=== PATIENT | female | born 1945 | race Caucasian/White ===

== ENCOUNTER 2016-09-24 08:39 | Emergency (ER) | payer MEDICARE ==
[~2016-09-24] VITALS: Ht 157.5 cm; Wt 91.2 kg
[~2016-09-24 08:39] MED LIST: ALEN70TA5 PO; ASPI81TA2 PO; B CO1TAB30 PO; CHOL200024 PO; ESTR1TAB15 PO; FLUT16SP NS; FLUT1DIS3 IH; GABA-586 PO; LEVO175T5 PO; LEVO500T38 PO; METO25TA9 PO; OMEG1CAP6 PO; PHEN300C4 PO; SIMV40TA3 PO; SODI1PAC NS; SPIR50TA2 PO; TIOT18CA IH; ZOLP5TAB4 PO; [UNRECOGNIZED DRUG - CODE] PO
--- NOTE | 2016-09-24 08:56 | PHYS DOC ---
Past Medical History Past Medical History: Other Past Surgical History: Other Additional Past Surgical Histo: cardiac stent placement, CSF leak Alcohol Use: None Drug Use: None Adult General Chief Complaint Chief Complaint: FOOT INJURY PAIN HPI HPI Patient is a 71 year old female who presents with R foot pain. Patient reports she was sitting in a chair yesterday when she started to slide out and hit her R foot on a metal stand. She presents today with pain in the foot and ankle. She did not take anything for the pain prior to arrival. No other injuries. She is UTD on tetanus booster. Review of Systems Review of Systems Constitutional: Denies fever or chills Eyes: Denies change in visual acuity or eye pain HENT: Denies nasal congestion or sore throat Respiratory: Denies cough or shortness of breath Cardiovascular: Denies chest pain GI: Denies abdominal pain, nausea, vomiting, bloody stools or diarrhea : Denies dysuria or hematuria Musculoskeletal: R foot pain and ankle pain Integument: Denies rash or skin lesions Neurologic: Denies headache, focal weakness or sensory changes Current Medications Current Medications Current Medications Medications (Trade) Dose Ordered Sig/Carmella Start Time Stop Time Status Last Admin Dose Admin Acetaminophen/ Hydrocodone Bitart (Lortab 5/325) 1 tab 1X ONCE 09/24/16 09:15 09/24/16 09:17 DC 09/24/16 09:25 1 TAB Neomycin/ Polymyxin/ Bacitracin (Triple Antibiotic Ointment) 1 pkt 1X ONCE 09/24/16 09:45 09/24/16 09:49 DC 09/24/16 10:00 1 PKT Allergies Allergies Allergies Coded Allergies Type Severity Reaction Last Updated Verified Sulfa (Sulfonamide Antibiotics) Allergy Intermediate Rash 01/27/16 No Physical Exam Physical Exam Constitutional: Well developed, well nourished, no acute distress, non-toxic appearance HENT: Normocephalic, atraumatic Eyes: EOMI, conjunctiva normal, no discharge Neck: No stridor Pulmonary: No respiratory distress Skin: Warm, dry Neurologic: Alert and oriented X 3, no gross deficits noted Musculoskeletal: R ankle swollen compared to L, pain with palpation of both medial and lateral malleoli; TTP of R foot, most pronounced along lateral aspect and 4th and 5th metatarsals; bruising of 4th and 5th toes; small (2mm) superficial abrasion to lateral aspect of 4th toe; 2+ DP pulse, motor function and sensation to light touch fully intact; no TTP of R lower leg or knee Psychologic: Affect normal, judgement normal, mood normal Current Patient Data Vital Signs Vital Signs Date Time Temp Pulse Resp B/P Pulse Ox O2 Delivery O2 Flow Rate FiO2 09/24/16 09:18 97.5 80 16 128/61 94 Room Air 97.5 EKG EKG [] Radiology/Procedures Radiology/Procedures X-ray R foot/ankle: IMPRESSION: 1. Demineralization. 2. Scattered degenerative changes. 3. Small cortical fracture along the dorsal margin of the navicular bone. Course & Med Decision Making Course & Med Decision Making Pertinent Labs and Imaging studies reviewed. (See chart for details) Patient is 71 year old female who presents with R foot and ankle pain from injury sustained yesterday. Will obtain x-rays of foot and ankle to evaluate for fracture. Oral pain medication ordered for relief of pain. Imaging results as above. Discussed results with patient. Will place in post-op shoe. Discussed management with patient, including non-weight bearing until follow up with ortho. Patient discharged home with rx for pain meds, instructions for follow up with orthopedics, return precautions. Dragon Disclaimer Dragon Disclaimer This electronic medical record was generated, in whole or in part, using a voice recognition dictation system. Departure Departure Impression: Primary Impression: Foot fracture Disposition: 01 HOME, SELF-CARE Condition: STABLE Referrals: NIEVES SALMON MD (PCP) CHRISTIAN ABREU MD Patient Instructions: Foot Fracture Additional Instructions: Thank you for allowing us to provide care today in the Emergency Department. Take the provided medication as directed. Use caution when taking the pain medication as it can make you drowsy. Schedule a follow up appointment with your primary care doctor. Return promptly to the Emergency Department if you develop any new or concerning symptoms. Scripts Hydrocodone/Apap 5-325 (Howe 5-325 Tablet)1 Each Tablet1 Tab PO PRN Q6HRS PRN PAIN #25 TAB Prov:SALVATORE BOND MD 09/24/16 SALVATORE BOND MD Sep 24, 2016 08:56
[2016-09-24] MEDS ORDERED: HYDROCODONE/APAP 5/325MG TABLET. PO ONE (09:15)
[2016-09-24 09:18] VITALS: BP 128/61
--- NOTE | 2016-09-24 09:28 | RAD ---
Right ankle, 3 views, 09/24/2016: History: Fall, pain and swelling There is patchy bony demineralization. No ankle fracture is identified. There is moderate diffuse soft tissue swelling about the ankle. Right foot, 3 views, 09/24/2016: There are moderate scattered degenerative changes. There is a small calcific density along the dorsal aspect of the navicular bone compatible with a cortical avulsion fracture, which may be recent. No other fracture or dislocation is identified. There is a moderate sized inferior calcaneal spur. There is moderate diffuse soft tissue swelling about the foot. IMPRESSION: 1. Demineralization. 2. Scattered degenerative changes. 3. Small cortical fracture along the dorsal margin of the navicular bone.
[2016-09-24] MEDS ORDERED: NEOMY/BACITR/POLYMYXIN OINT PACKET. TP ONE (09:45)
[2016-09-24] MEDS ORDERED: HYDR-971 PO (09:49)
== END 2016-09-24 10:43 | disposition other institution (70) ==
LOC: ER 08:39
DX: S92.251A Displaced fracture of navicular [scaphoid] of right foot, initial encounter for closed fracture (principal); Z88.2 Allergy status to sulfonamides; W01.198A Fall on same level from slipping, tripping and stumbling with subsequent striking against other object, initial encounter; Y93.89 Activity, other specified; Y92.89 Other specified places as the place of occurrence of the external cause; Y99.8 Other external cause status
CPT/HCPCS: 73610; 73630; 99284

== ENCOUNTER → 2016-11-05 | Outpatient (CLI) | payer MEDICARE ==
[~2016-11-05] MED LIST changes: +HYDR-971 PO
--- NOTE | 2016-11-05 13:34 | KCIC ---
Two-view chest. Indication:Reason For StudyReason: WORSENING SHORTNESS OF AIR X 2 MONTHS / Spl. Instructions: / History: FINDINGS: Heart size is normal. Pulmonary vasculature is within normal limits. No pleural effusion or consolidating infiltrate. No pneumothorax. The mediastinal contours are within normal limits. IMPRESSION: Negative two-view chest. Electronically signed by: Nils Hugo (Nov 05, 2016 13:32:56)
== END | disposition home or self-care (01) ==
LOC: KCIC 12:56
PROVIDERS: ATTEND Internal Medicine Pulmonary Disease
DX: R06.02 Shortness of breath (principal)
CPT/HCPCS: 71020

== ENCOUNTER → 2016-12-05 | Outpatient (CLI) | payer MEDICARE, OTHER ==
[~2016-12-05] MED LIST changes: -ZOLP5TAB4 PO; +ZOLP5TAB5 PO
--- NOTE | 2016-12-05 13:01 | RAD ---
Indication interstitial lung disease. Axial noncontrast images of the chest were obtained and are compared to a study 01/25/2015. There is coronary calcification or there are coronary artery stents. The thoracic aorta appears unremarkable. There are scattered mediastinal lymph nodes. Definite pathologic mediastinal or hilar adenopathy is not seen. Imaging through the upper abdomen is unremarkable. There are scattered opacities in the lungs compatible with the provided diagnosis of interstitial lung disease. A definite acute finding is not seen. A dominant soft tissue mass is not apparent. IMPRESSION: Interstitial changes compatible with the provided diagnosis of interstitial lung disease. A dominant soft tissue mass in either lung is not seen. PQRS Compliance Statement: One or more of the following individualized dose reduction techniques were utilized for this examination: 1. Automated exposure control 2. Adjustment of the mA and/or kV according to patient size 3. Use of iterative reconstruction technique
== END | disposition home or self-care (01) ==
LOC: CT 08:33
PROVIDERS: ATTEND Internal Medicine Pulmonary Disease
DX: J84.9 Interstitial pulmonary disease, unspecified (principal)
CPT/HCPCS: 71250

== ENCOUNTER → 2016-12-07 | Outpatient (CLI) | payer MEDICARE ==
--- NOTE | 2016-12-07 14:20 | RESP ---
DATE OF SERVICE: 12/07/2016 The patient underwent full pulmonary function testing dated 12/07/2016. FEV1 to FVC ratio was 73%, FEV1 was 48% of predicted at 1.01 liters, FVC was 49% of predicted at 1.37 liters. There was a significant bronchodilator response. Residual volume was markedly elevated. Diffusion capacity was diminished. IMPRESSION: 1. Moderate to severe airflow limitation. 2. Significant bronchodilator response. 3. Decreased diffusion capacity compatible with emphysema. BEBO PINEDO MD DR: ISELA/kareem JOB#: [id number] / [id number] NIEVES Whitney MD
== END | disposition home or self-care (01) ==
LOC: PF 08:22
PROVIDERS: ATTEND Internal Medicine Pulmonary Disease
DX: R06.02 Shortness of breath (principal)
CPT/HCPCS: 94060; 94729

== ENCOUNTER → 2017-03-22 | Outpatient (CLI) | payer MEDICARE ==
[~2017-03-22] MED LIST changes: +ASPI-630 PO; -ASPI81TA2 PO; +IOHEXOL 240 MG/ML 50ML VIAL. PO ONE; -LEVO500T38 PO; +LEVO500T59 PO
--- NOTE | 2017-03-22 16:25 | RAD ---
CT of the abdomen and pelvis without contrast, 03/22/2017: History: Abdominal pain and diarrhea Multidetector CT imaging was performed following oral ingestion of contrast. No IV contrast was administered for this exam. There are mild reticular basilar opacities compatible with the given history of chronic interstitial lung disease. The unopacified liver shows no abnormality. The gallbladder is surgically absent. No pancreatic abnormality is detected. The spleen is of normal size. The unopacified kidneys show no abnormality. Mild aortoiliac calcific plaquing is present without evidence of aneurysm. No abdominal or pelvic adenopathy is seen. The uterus is surgically absent. There are surgical sutures related to the rectum. The bowel loops are not dilated. No free fluid or free air is evident in the abdomen or pelvis. There is a small umbilical hernia containing only fat. No bowel herniation is evident. Mild multilevel degenerative changes are present in the spine. IMPRESSION: 1. No acute abdominal or pelvic abnormality is detected. 2. Small umbilical hernia containing only fat. PQRS Compliance Statement: One or more of the following individualized dose reduction techniques were utilized for this examination: 1. Automated exposure control 2. Adjustment of the mA and/or kV according to patient size 3. Use of iterative reconstruction technique
== END | disposition home or self-care (01) ==
LOC: CT 13:18
PROVIDERS: ATTEND Family Medicine
DX: R10.84 Generalized abdominal pain (principal); R19.7 Diarrhea, unspecified; K42.9 Umbilical hernia without obstruction or gangrene
CPT/HCPCS: 74176; Q9966

== ENCOUNTER 2017-04-07 08:27 | Emergency (ER) | payer MEDICARE ==
[~2017-04-07] VITALS: Ht 157.5 cm; Wt 88.5 kg
[~2017-04-07 08:27] MED LIST changes: -IOHEXOL 240 MG/ML 50ML VIAL. PO ONE
[2017-04-07 08:30] VITALS: BP 142/87
[2017-04-07] MEDS ORDERED: PRED20TA PO (08:53)
[2017-04-07] MEDS ORDERED: HYDR-971 PO (08:53)
--- NOTE | 2017-04-07 08:54 | PHYS DOC ---
Past Medical History Past Medical History: COPD, High Cholesterol, Hypertension, Hypothyroid, Lung Disease, Other Additional Past Medical Histor: pulm fibrosis, Past Surgical History: Other Additional Past Surgical Histo: cardiac stent placement, CSF leak Alcohol Use: None Drug Use: None Adult General Chief Complaint Chief Complaint: LOWER BACK PAIN OR INJURY HPI HPI Patient is a 72 year old female who presents ambulatory to the emergency department complaining of a three-day history of pain from her left lower back down into her left butt and down the back of her left leg to her foot. It has been severe at times. 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 She's never had this before. She has taken some Aleve and also took one or 2 of her 's hydrocodone with minimal relief. She has no history of back pain, she doesn't have a "bad back". She has not had a fall or any specific back injury. Denies weakness of her left leg, it's just painful. PCP Dr. Matthew Chun of [facility] Review of Systems Review of Systems Constitutional: Denies fever or chills [] GI: Denies abdominal pain, nausea, vomiting, bloody stools or diarrhea [] : Denies dysuria or hematuria [] Musculoskeletal: As in history of present illness Integument: Denies rash or skin lesions [] Allergies Allergies Allergies Coded Allergies Type Severity Reaction Last Updated Verified Sulfa (Sulfonamide Antibiotics) Allergy Intermediate Rash 01/27/16 No Physical Exam Physical Exam Constitutional: Well developed, well nourished, no acute distress, non-toxic appearance. Ambulatory without difficulty or weakness. HENT: Normocephalic, atraumatic, bilateral external ears normal, nose normal. [ ] Eyes: conjunctiva normal, no discharge. [] Neck: Normal range of motion, no stridor. [] Skin: Warm, dry, no erythema, no rash. [] Back: No tenderness, no CVA tenderness. [] Extremities: No tenderness, no cyanosis, no clubbing, ROM intact, no edema. Lower extremities normal in appearance bilaterally. DTRs 2 over 4 and equal at both knees. Lower extremity strength 5 over 5 for leg extension bilaterally and dorsiflexion of the great toe bilaterally. Neurologic: Alert and oriented X 3, normal motor function, normal sensory function, no focal deficits noted. [] Current Patient Data Vital Signs Vital Signs Date Time Temp Pulse Resp B/P (MAP) Pulse Ox O2 Delivery O2 Flow Rate FiO2 04/07/17 08:30 98.2 98 16 142/87 (105) 96 Room Air 98.2 EKG EKG [] Radiology/Procedures Radiology/Procedures [] Course & Med Decision Making Course & Med Decision Making Pertinent Labs and Imaging studies reviewed. (See chart for details) 72-year-old female presents with a few days of left leg radiculopathy, no injury that started it. We will treat her with oral steroids, see instructions for plan. [] Dragon Disclaimer Dragon Disclaimer This electronic medical record was generated, in whole or in part, using a voice recognition dictation system. Departure Departure Impression: Primary Impression: Lumbar radiculopathy, acute Disposition: 01 HOME, SELF-CARE Condition: STABLE Referrals: NIEVES SALMON MD (PCP) Patient Instructions: Lumbosacral Radiculopathy Additional Instructions: As we discussed, your leg pain is being caused by nerve pain. We called this a "pinched nerve", although the nerve might not be actually pinched, it might be inflamed or irritated. We will treat this for a few days with prednisone, being used as an anti- inflammatory, and also a strong anti-inflammatory medication, ibuprofen. Purchase pelv-ghu-caqtony ibuprofen, also called Motrin or Advil, 200 mg. Take 3 of these at a time for a total of 600 mg every 6-8 hours. Take at least 3 doses a day. Continue this for 3-5 days or longer if your doctor wants you to. If not improving in one to 2 days, if not better in 2-3 days, or if it gets better and then comes back, see your doctor. If you need to follow up with your doctor, he might get an MRI to see if anything is actually pinching your nerve. He might refer you to physical therapy or pain management, depending on what he thinks about your pain. Hydrocodone as needed for more severe pain. You may combine this with your other medications and the ones I prescribed today. This is an opiate and will be sedating and constipating. Do not drive while taking this. Scripts Hydrocodone/Apap 5-325 (NORCO 5-325 TABLET) 1 Each Tablet 1-2 TAB PO Q4-6HRS for leg pain, pinched nerve, #15 TAB Prov: CHAVA SPANGLER MD 04/07/17 Prednisone (PREDNISONE) 20 Mg Tablet 40 MG PO DAILY for leg pain, pinched nerve for 5 Days, #10 TAB Prov: CHAVA SPANGLER MD 04/07/17 CHAVA SPANGLER MD Apr 07, 2017 08:54
[2017-04-07] MEDS ORDERED: VENTOLIN HFA18 GM INH (09:00)
[2017-04-07] MEDS ORDERED: PHEN100C4 PO (09:00)
[2017-04-07] MEDS ORDERED: ATOR20TA58 PO (09:00)
== END 2017-04-07 09:06 | disposition home or self-care (01) ==
LOC: ER 08:27
DX: M54.16 Radiculopathy, lumbar region (principal); E78.00 Pure hypercholesterolemia, unspecified; I10 Essential (primary) hypertension; E03.9 Hypothyroidism, unspecified; J44.9 Chronic obstructive pulmonary disease, unspecified; Z95.5 Presence of coronary angioplasty implant and graft; Z88.2 Allergy status to sulfonamides
CPT/HCPCS: 99283

== ENCOUNTER → 2017-05-06 | Outpatient (CLI) | payer MEDICARE ==
[2017-04-07 08:30] VITALS: BP 142/87
[~2017-05-06] MED LIST changes: +ATOR20TA58 PO; +PHEN100C4 PO; +PRED20TA PO; +VENTOLIN HFA18 GM INH
--- NOTE | 2017-05-06 13:51 | RAD ---
MRI Lumbar Spine without contrast History: Left lower extremity radiculopathy Technique: Multiplanar, multi sequential noncontrast MR imaging was performed of the lumbar spine. Contrast: None Comparison: None Findings: Most inferior fully formed intervertebral disc space is considered L5-S1 for this report. Lumbar vertebral body stature is preserved. There is negligible anterior spondylolisthesis L3-4, negligible posterior subluxation L4 relative to L5. There is abtj-ru-qwhpzish degenerative disc disease L3-4 and L5-S1 and to lesser degree L4-5. Conus terminates at mid to superior aspect L2. Not included on the axial images, there is buckling of the ligamentum flavum at T11-12 with indentation upon the posterior thecal sac in the lateral recesses. L1-L2: Neural foramina and spinal canal are adequate. L2-L3: There is mild facet degenerative change. Spinal canal and neural foramina are adequate. L3-L4: There is minimal bulge. There is mild buckling of the ligamentum flavum and facet hypertrophic change. Neural foramina are adequate. There is mild lateral recess stenosis bilaterally greater on the right. Neural foramina are adequate. L4-L5: There is mild facet degenerative change and buckling of the ligamentum flavum. There is very mild narrowing of the far lateral recesses bilaterally. Shallow protrusion in the inferior left neural foramen is near the undersurface exiting left L4 nerve root without significant impingement, overall mild narrowing of the left neural foramen. Right neural foramen is overall adequate. L5-S1: There is uezv-yr-feczqime facet degenerative change and buckling of the ligamentum flavum. There is groz-ip-ewlyxbae narrowing of the far lateral recesses bilaterally at the location of the descending S1 nerve roots. There is minimal disc osteophyte complex and shallow protrusion in the inferior left neural foramen and proximal left extraforaminal region. There is moderate to severe narrowing of the left neural foramen with impingement of the exiting left L5 nerve root, also contacted in the extraforaminal region. There is moderate narrowing of the right neural foramen in part by minimal bulge/protrusion. Impression: 1. Most inferior fully formed intervertebral disc space is considered L5-S1 for this report. There is rpnc-da-mmeexrxy narrowing of the far lateral recesses bilaterally at L5-S1, also minimally at L4-5 and right greater than left at L3-4. 2. There is left greater than right L5-S1 neural foramina compromise, contact exiting left L5 nerve root including in the extraforaminal region by protrusion. There is mild narrowing on the left at L4-5. 3. There is mild abnormal alignment as stated. There is uqwm-ya-rxlifeyl degenerative disc disease L3-4 and L5-S1 and to lesser degree at L4-5. Electronically signed by: Jesus Veronica MD (05/06/2017 1:47 PM) [id number]
== END | disposition home or self-care (01) ==
LOC: MRI 13:21
PROVIDERS: ATTEND Family Medicine
DX: M51.16 Intervertebral disc disorders with radiculopathy, lumbar region (principal)
CPT/HCPCS: 72148

== ENCOUNTER → 2017-06-10 | Outpatient (CLI) | payer MEDICARE ==
[~2017-06-10] MED LIST changes: +METO-239 PO; -METO25TA9 PO
[2017-06-10] MEDS: BARIUM SULFATE 60% 355 ML SUSP PO ONE (10:02)
--- NOTE | 2017-06-10 11:21 | RAD ---
Small bowel series, 06/10/2017: History: Abdominal pain, diarrhea, constipation The preliminary abdominal image demonstrates gas in large and small bowel in a nonspecific pattern. Surgical clips in the right upper quadrant suggest a previous cholecystectomy. There are moderate scattered degenerative changes in the spine. Overhead and fluoroscopic spot images were obtained following oral ingestion of liquid barium. 0.8 minutes of fluoroscopy time was utilized. 4 fluoroscopic spot images were recorded. The small bowel loops are of normal caliber with no evidence of thickening of their folds. There is normal transit of the barium through the small bowel into the colon. The terminal ileum is unremarkable. IMPRESSION: No significant small bowel abnormality is detected.
== END | disposition home or self-care (01) ==
LOC: RAD 09:22
PROVIDERS: ATTEND Internal Medicine Gastroenterology
DX: K59.00 Constipation, unspecified (principal); R19.7 Diarrhea, unspecified; Z90.49 Acquired absence of other specified parts of digestive tract
CPT/HCPCS: 74250

== ENCOUNTER → 2017-06-18 | Outpatient (CLI) | payer MEDICARE ==
--- NOTE | 2017-06-18 11:13 | RAD ---
Exam performed: Nuclear medicine gastric imaging study. History: Lower abdominal pain and cramping with diarrhea. Date of service: 06/18/17. Comparison: None available Discussion: Patient was given 2.1 mCi of technetium 90 9M sulfur colonic as a solid egg meal and sequential images of the abdomen are obtained. There is slow emptying of the gastric contents into the small bowel. Imaging was performed up to an hour. Time to half emptying of the stomach was calculated which measures 196 minutes. Impression: Abnormally increased time to half emptying of the stomach measuring 196 minutes
== END | disposition home or self-care (01) ==
LOC: NM 08:35
PROVIDERS: ATTEND Internal Medicine Gastroenterology
DX: R10.30 Lower abdominal pain, unspecified (principal); R19.7 Diarrhea, unspecified
CPT/HCPCS: 78264; A9541

== ENCOUNTER → 2017-11-22 | Outpatient (CLI) | payer MEDICARE | END | disposition home or self-care (01) | LOC: KCIC MAMMO 10:11 | DX: Z12.31 Encounter for screening mammogram for malignant neoplasm of breast (principal) | CPT/HCPCS: 77063; 77067 ==

== ENCOUNTER → 2018-03-04 | Outpatient (CLI) | payer MEDICARE | END | disposition home or self-care (01) | LOC: ECHO 09:54 | DX: I25.10 Atherosclerotic heart disease of native coronary artery without angina pectoris (principal); I34.0 Nonrheumatic mitral (valve) insufficiency; I65.22 Occlusion and stenosis of left carotid artery; I10 Essential (primary) hypertension; E78.5 Hyperlipidemia, unspecified; E78.00 Pure hypercholesterolemia, unspecified | CPT/HCPCS: 93306; 93880 ==

== ENCOUNTER → 2018-03-13 | Outpatient (CLI) | payer MEDICARE ==
[2018-03-13] MEDS: IOHEXOL 240 MG/ML 50ML VIAL. PO (09:12)
[2018-03-13] MEDS: IOHEXOL 300 MG/ML 100ML VIAL. IV (09:12)
[2018-03-13 10:16] LABS: ISTAT CREATININE 0.5 mg/dL (0.6-1.1)
== END | disposition home or self-care (01) ==
LOC: KCIC CT 07:50
DX: K76.0 Fatty (change of) liver, not elsewhere classified (principal); K42.9 Umbilical hernia without obstruction or gangrene; I70.0 Atherosclerosis of aorta; I10 Essential (primary) hypertension; E03.9 Hypothyroidism, unspecified; J44.9 Chronic obstructive pulmonary disease, unspecified; R16.2 Hepatomegaly with splenomegaly, not elsewhere classified
CPT/HCPCS: 74177; 82565; Q9966; Q9967

== ENCOUNTER → 2018-04-30 | Outpatient (CLI) | payer MEDICARE ==
[~2018-04-30] MED LIST changes: -SPIR50TA2 PO; +SPIR50TA4 PO
--- NOTE | 2018-04-30 11:02 | KCIC ---
Barium enema HISTORY: Abdominal pain and cramping for 2 months, history of constipation COMPARISON: There is no previous similar exam available FINDINGS: Double contrast barium enema was performed. Marketing Admin radiograph demonstrates nonobstructive bowel gas pattern. There has been cholecystectomy. There is no evidence of colonic obstruction. There was poor coating of the transverse colonic ferguson with contrast. There is also variable retained stool adherent to the colonic ferguson most notable from the hepatic to splenic flexures, limited evaluation for underlying polyp/mass. Caliber of the colon is within normal limits. Fluoroscopy time: 3 minutes 58 seconds, 12 images IMPRESSION: 1. Exam is limited due to adherent stool and poor contrast coating of the ferguson most notable of the transverse colon, cannot exclude underlying polyps on this exam. There is no evidence of colonic obstruction or extrinsic mass. Electronically signed by: Jesus Veronica MD (04/30/2018 10:59 AM) [id number]
== END | disposition home or self-care (01) ==
LOC: KCIC 08:11
PROVIDERS: ATTEND Internal Medicine Gastroenterology
DX: R10.9 Unspecified abdominal pain (principal); I25.10 Atherosclerotic heart disease of native coronary artery without angina pectoris; I10 Essential (primary) hypertension; E78.5 Hyperlipidemia, unspecified; E78.00 Pure hypercholesterolemia, unspecified; I73.9 Peripheral vascular disease, unspecified; E03.9 Hypothyroidism, unspecified; J44.9 Chronic obstructive pulmonary disease, unspecified; M19.90 Unspecified osteoarthritis, unspecified site; Z86.73 Personal history of transient ischemic attack (TIA), and cerebral infarction without residual deficits; Z95.5 Presence of coronary angioplasty implant and graft; Z85.9 Personal history of malignant neoplasm, unspecified; Z88.2 Allergy status to sulfonamides
CPT/HCPCS: 74270

== ENCOUNTER → 2018-10-08 | Outpatient (CLI) | payer MEDICARE ==
[~2018-10-08] MED LIST changes: -ALEN70TA5 PO; +ALEN70TA6 PO; +BENZ100C PO; +FAMO40TA4 PO; -GABA-586 PO; +GABA300C18 PO; +HYDR-3164 PO; -HYDR-971 PO; +ONDA8TAB9 PO; +TIOT4MIS3 IH
--- NOTE | 2018-10-08 14:00 | KCIC ---
PQRS Compliance Statement: One or more of the following individualized dose reduction techniques were utilized for this examination: 1. Automated exposure control 2. Adjustment of the mA and/or kV according to patient size 3. Use of iterative reconstruction technique CT chest without contrast October 08, 2018 INDICATION: Lung nodule. COMPARISON: CT abdomen/pelvis March 13, 2018, CT chest December 05, 2016 TECHNIQUE: Multiple axial CT images of the chest were obtained without intravenous contrast. Coronal and sagittal reformats are provided. FINDINGS: The thyroid gland is surgically absent. There is a 5 mm short axis right superior paratracheal lymph node. Paratracheal lymph node measures 6 mm by short axis. Precarinal lymph node measures 12 mm by short axis (series 2, image 71). Findings are stable from prior examination from December 05, 2016. No new or enlarging thoracic lymphadenopathy. Subpleural interstitial changes are identified at the lower lung zone predominance. There is no honeycombing. There is mild traction bronchiectasis. Mild bronchial wall thickening compatible with bronchitis. There is a 4 mm solid noncalcified pulmonary nodule in the left upper lobe, stable. No new or enlarging solid noncalcified pulmonary nodules are identified. There are no pleural effusions. No pulmonary vascular congestion or pneumothorax. Evaluation of the solid abdominal viscera is limited by lack of intravenous contrast. No suspicious hepatic lesion is identified. Spleen is nonenlarged. Adrenal glands are normal in appearance. Peripancreatic inflammatory changes are identified. Gallbladder is surgically absent. No suspicious osseous abnormality is identified. IMPRESSION: Chronic interstitial changes are identified. Findings do not conform to a specific subtype of interstitial lung disease. Findings are not significant change since the prior examination from December 05, 2016. However, there may be subtle increase in the lower lung zone predominant cylindrical bronchiectasis. No honeycombing or groundglass changes are visualized. No new or enlarging solid noncalcified pulmonary nodule is identified. Borderline mediastinal lymph nodes appear stable. Electronically signed by: Amber Tompkins MD (10/08/2018 1:56 PM) [id number]
== END ==
LOC: KCIC CT 12:52
PROVIDERS: ATTEND Internal Medicine Pulmonary Disease
DX: R91.1 Solitary pulmonary nodule (principal); E89.0 Postprocedural hypothyroidism; J44.9 Chronic obstructive pulmonary disease, unspecified; I25.2 Old myocardial infarction; F17.210 Nicotine dependence, cigarettes, uncomplicated; G40.909 Epilepsy, unspecified, not intractable, without status epilepticus; Z90.49 Acquired absence of other specified parts of digestive tract; Z88.2 Allergy status to sulfonamides
CPT/HCPCS: 71250

== ENCOUNTER 2018-10-22 09:15 | Emergency (ER) | payer MEDICARE ==
[~2018-10-22] VITALS: Ht 154.9 cm; Wt 81.2 kg
[~2018-10-22 09:15] MED LIST changes: -BENZ100C PO; -FAMO40TA4 PO; -ONDA8TAB9 PO; -TIOT4MIS3 IH
[2018-10-22 09:20] VITALS: BP 128/66
--- NOTE | 2018-10-22 10:02 | PHYS DOC ---
Past Medical History Past Medical History: COPD, High Cholesterol, Hypertension, Hypothyroid, Lung Disease, Seizure, Other Additional Past Medical Histor: pulm fibrosis, Past Surgical History: Other Additional Past Surgical Histo: cardiac stent placement, CSF leak Alcohol Use: None Drug Use: None Adult General Chief Complaint Chief Complaint: ANKLE PROBLEM [facility] HPI Patient is a 73 year old female who presents with left lateral ankle pain that began at 2300 last night. She reports getting up from watching TV and her leg "gave out on her." Reports mild relief with ice, heat, and elevation. She is able to bear toe touch weight after taking hydrocodone this morning. She denies any dizziness, loss of consciousness, head injury or frequent falls. Review of Systems Review of Systems Constitutional: Denies fever or chills Eyes: Denies change in visual acuity, redness, or eye pain HENT: Denies nasal congestion or sore throat Respiratory: Denies cough or shortness of breath greater than baseline Cardiovascular: No additional information not addressed in HPI GI: Denies abdominal pain, nausea, vomiting, bloody stools or diarrhea : Denies dysuria or hematuria Musculoskeletal: Endorse left lateral joint pain worse on dorsiflexion Integument: Denies rash or skin lesions Neurologic: Denies headache, focal weakness or sensory changes Endocrine: Denies polyuria or polydipsia All other systems were reviewed and found to be within normal limits, except as documented in this note. Allergies Allergies Allergies Coded Allergies Type Severity Reaction Last Updated Verified Sulfa (Sulfonamide Antibiotics) Allergy Intermediate Rash 01/27/16 No Physical Exam Physical Exam Constitutional: Well developed, well nourished, no acute distress, non-toxic appearance. HENT: Normocephalic, atraumatic, bilateral external ears normal, oropharynx moist, no oral exudates, nose normal. Eyes: PERRLA, EOMI, conjunctiva normal, no discharge. Neck: Normal range of motion, no tenderness, supple, no stridor. Cardiovascular:Heart rate regular rhythm, no murmur Lungs & Thorax: Bilateral breath sounds clear to auscultation Abdomen: Bowel sounds normal, soft, no tenderness, no masses, no pulsatile masses. Skin: Warm, dry, no erythema, no rash. Back: No tenderness, no CVA tenderness. Extremities: Left ankle tenderness, edema and restriction to dorsiflexion, no cyanosis or ecchymosis, no clubbing. Peripheral pulses palpable. Neurologic: Alert and oriented X 3, normal motor function, normal sensory function, no focal deficits noted. Psychologic: Affect normal, judgement normal, mood normal. Current Patient Data Vital Signs Vital Signs Date Time Temp Pulse Resp B/P (MAP) Pulse Ox O2 Delivery O2 Flow Rate FiO2 10/22/18 09:20 97.8 90 18 128/66 (86) 96 Nasal Cannula 3.0 97.8 EKG EKG [] Radiology/Procedures Radiology/Procedures [] Impressions: pression: Fractured inferior tip of the lateral malleolus. Associated soft tissue swelling. Bony densities about the lateral aspect of the calcaneocuboid joint of indeterminate significance. Fracture is not necessarily excluded. Electronically signed by: Margaux Benavidez MD (10/22/2018 10:55 AM) [id number] DICTATED and SIGNED BY: MARGAUX BENAVIDEZ MD DATE: 10/22/18 1051 Course & Med Decision Making Course & Med Decision Making Pt is a 73 year old female with past medical history of COPD, obstructive sleep apnea, hyperlipidemia, hypothyroid, and seizure disorder ( last 2003) presents with left lateral ankle pain. xray shows possible subtle fractures as noted above. Clinically is more consistent with ankle sprain nevertheless we placed her in a posterior splint and walking shoe encouraged to use her walker as much as possible referred to orthopedic for follow-up. Pertinent Labs and Imaging studies reviewed. (See chart for details) [] Dragon Disclaimer Dragon Disclaimer This electronic medical record was generated, in whole or in part, using a voice recognition dictation system. Departure Departure Impression: Primary Impression: Foot fracture Disposition: 01 HOME, SELF-CARE Condition: STABLE Referrals: NIEVES SALMON MD (PCP) Scripts Hydrocodone/Apap 5-325 (NORCO 5-325 TABLET) 1 Each Tablet 1-2 EACH PO PRN Q6HRS PRN for PAIN, #8 as needed for pain Prov: ZENAIDA IGNACIO MD 10/22/18 ZENAIDA IGNACIO MD Oct 22, 2018 10:02
[2018-10-22] MEDS ORDERED: HYDR-3164 PO (10:42)
--- NOTE | 2018-10-22 10:58 | RAD ---
Examination: ANKLE LEFT 3V, FOOT LEFT 3V History: PT FELL LAST PM, PAIN/SWELLING LAT LEFT ANKLE Comparison/Correlation: None Findings: 3 images of the left ankle and 3 images of the left foot were obtained. Soft tissue swelling about the lateral malleolus is notable. Ankle joint mortise is adequate. Fracture of the inferior tip of the lateral malleolus noted. Minimal displacement. Moderate-sized calcaneal spur is present. Deformity of the third metatarsal head is present and may represent previous episodes of avascular necrosis. Mild degenerative changes of the midfoot are present. Bony densities at the lateral aspect of the calcaneocuboid joint are present and of indeterminate significance. These are noted on the AP view of the foot. Osteopenia noted. Impression: Fractured inferior tip of the lateral malleolus. Associated soft tissue swelling. Bony densities about the lateral aspect of the calcaneocuboid joint of indeterminate significance. Fracture is not necessarily excluded. Electronically signed by: Joby Newman MD (10/22/2018 10:55 AM) [id number]
[2019-01-13] MEDS ORDERED: ONDA8TAB9 PO (14:18)
[2019-01-13] MEDS ORDERED: FAMO40TA4 PO (14:18)
[2019-01-13] MEDS ORDERED: TIOT4MIS3 IH (14:18)
== END 2018-10-22 11:01 | disposition home or self-care (01) ==
LOC: ER 09:15
DX: S82.62XA Displaced fracture of lateral malleolus of left fibula, initial encounter for closed fracture (principal); M85.872 Other specified disorders of bone density and structure, left ankle and foot; E78.00 Pure hypercholesterolemia, unspecified; E03.9 Hypothyroidism, unspecified; J44.9 Chronic obstructive pulmonary disease, unspecified; G40.909 Epilepsy, unspecified, not intractable, without status epilepticus; I10 Essential (primary) hypertension; Z88.2 Allergy status to sulfonamides; W18.39XA Other fall on same level, initial encounter; Y93.89 Activity, other specified; Y92.89 Other specified places as the place of occurrence of the external cause; Y99.8 Other external cause status
CPT/HCPCS: 29515; 73610; 73630; 99283-25

== ENCOUNTER 2018-10-23 03:19 | Emergency (ER) | payer MEDICARE ==
[~2018-10-23] VITALS: Ht 162.6 cm; Wt 81.2 kg
[~2018-10-23 03:19] MED LIST changes: -ALEN70TA6 PO; +ALEN70TA60 PO
[2018-10-23 03:35] VITALS: BP 136/72
--- NOTE | 2018-10-23 03:57 | PHYS DOC ---
Past Medical History Past Medical History: COPD, High Cholesterol, Hypertension, Hypothyroid, Lung Disease, Seizure, Other Additional Past Medical Histor: pulm fibrosis, Past Surgical History: Other Additional Past Surgical Histo: cardiac stent placement, CSF leak Alcohol Use: None Drug Use: None Adult General Chief Complaint Chief Complaint: FOOT INJURY PAIN HPI HPI Patient is a 73 year old female who presents with left ankle pain. She was seen yesterday and diagnosed with an ankle fracture. She reports increased pain and throbbing since being put in the splint. No improvement with any narcotic pain medicine nor NSAIDs that were prescribed. No improvement with icing nor elevating the foot. Pain is moderate to severe.[] Review of Systems Review of Systems Constitutional: Denies fever or chills [] Eyes: Denies change in visual acuity, redness, or eye pain [] HENT: Denies nasal congestion or sore throat [] Respiratory: Denies cough or shortness of breath [] Cardiovascular: No chest pain or palpitations[] GI: Denies abdominal pain, nausea, vomiting, bloody stools or diarrhea [] : Denies dysuria or hematuria [] Musculoskeletal: See history of present illness[] Integument: Denies rash or skin lesions [] Neurologic: Denies headache, focal weakness or sensory changes [] Endocrine: Denies polyuria or polydipsia [] All other systems were reviewed and found to be within normal limits, except as documented in this note. Allergies Allergies Allergies Coded Allergies Type Severity Reaction Last Updated Verified Sulfa (Sulfonamide Antibiotics) Allergy Intermediate Rash 01/27/16 No Physical Exam Physical Exam Constitutional: Well developed, well nourished, no acute distress, non-toxic appearance. [] HENT: Normocephalic, atraumatic, bilateral external ears normal, oropharynx moist, no oral exudates, nose normal. [] Eyes: PERRLA, EOMI, conjunctiva normal, no discharge. [] Neck: Normal range of motion, no tenderness, supple, no stridor. [] Cardiovascular:Heart rate regular rhythm, no murmur [] Lungs & Thorax: Bilateral breath sounds clear to auscultation [] Abdomen: Not examined[] Skin: Warm, dry, no erythema, no rash. [] Back: No tenderness, no CVA tenderness. [] Extremities: Left foot in splint, short-leg splint, capillary Refill less than 2 seconds. No pain with passive extension of the toes.[] Neurologic: Alert and oriented X 3, normal motor function, normal sensory function, no focal deficits noted. [] Psychologic: Affect normal, judgement normal, mood normal. [] EKG EKG [] Radiology/Procedures Radiology/Procedures [] Course & Med Decision Making Course & Med Decision Making Pertinent Labs and Imaging studies reviewed. (See chart for details) ED course: Patient arrived, was placed in bed, tolerated exam well. Patient had the Ken wrap from the splinting performed earlier removed and patient achieved immediate pain relief. Patient was discharged in improved condition after the splint was re-wrapped in a looser fashion.[] Dragon Disclaimer Dragon Disclaimer This electronic medical record was generated, in whole or in part, using a voice recognition dictation system. Departure Departure Impression: Primary Impression: Aftercare for cast or splint check or change Disposition: 01 HOME, SELF-CARE Condition: IMPROVED Referrals: NIEVES SALMON MD (PCP) Patient Instructions: Cast or Splint Care Additional Instructions: Follow-up with your regular doctor and orthopedic surgery as previously directed. Keep the splint clean and dry. If it feels too tight tried loosening/ removing the Ken wraps and then rewrapping them looser. If this fails to relieve the pain return to the emergency department. Return to the ER if any other concerns. JACLYN MALDONADO DO Oct 23, 2018 03:57
== END 2018-10-23 04:07 | disposition home or self-care (01) ==
LOC: ER 03:19
DX: Z46.89 Encounter for fitting and adjustment of other specified devices (principal); M25.572 Pain in left ankle and joints of left foot; E03.9 Hypothyroidism, unspecified; E78.00 Pure hypercholesterolemia, unspecified; I10 Essential (primary) hypertension; J44.9 Chronic obstructive pulmonary disease, unspecified; Z95.5 Presence of coronary angioplasty implant and graft; Z88.2 Allergy status to sulfonamides
CPT/HCPCS: 99284

== ENCOUNTER 2019-01-14 06:51 | Day surgery (SDC) | payer MEDICARE ==
[~2019-01-14] VITALS: Ht 157.5 cm; Wt 80.0 kg
[~2019-01-14 06:51] MED LIST changes: +ALEN70TA6 PO; -ALEN70TA60 PO; +BUPIVACAINE MPF 0.5% 30 ML VIAL. ONE; +FAMO40TA4 PO; +LIDOCAINE 1% PF 30 ML VIAL. ONE; +ONDA8TAB9 PO; +TIOT4MIS3 IH; +ceFAZolin SODIUM IV Push 1 GM VIAL. IVP PRN
[2019-01-14] MEDS ORDERED: ONDANSETRON PF 4 MG/2 ML VIAL. IV PRN (07:00)
[2019-01-14] MEDS ORDERED: MORPHINE SULFATE 2 MG/ML VIAL. IV PRN (07:00)
[2019-01-14] MEDS ORDERED: LIDOCAINE 1% PF 2 ML VIAL. ID PRN (07:00)
[2019-01-14] MEDS ORDERED: HYDROmorphone 2 MG/ML VIAL IV PRN (07:00)
[2019-01-14] MEDS ORDERED: ceFAZolin 2GM PREMIX 2 GM/50 ML BAG IV ONE (07:00)
[2019-01-14] MEDS ORDERED: IV RINGERS,LACTATED 1000ML 1,000 ML IV SCH (07:00)
[2019-01-14] MEDS ORDERED: PROCHLORPERAZINE 10 MG/2 ML VIAL. IV PRN (07:00)
[2019-01-14] MEDS ORDERED: fentaNYL PF VIAL 100 MCG/2 ML VIAL IV PRN ×2 (07:00)
[2019-01-14] MEDS ORDERED: LIDOCAINE 2% PF 5 ML VIAL. ONE (08:10)
[2019-01-14] MEDS ORDERED: PROPOFOL 20 ML IV ONE ×2 (08:10→09:08)
--- NOTE | 2019-01-14 09:13 | DISCH ---
DISCHARGE INSTRUCTIONS Condition on Discharge Condition on Discharge: Stable Activity After Discharge Activity Instructions for Disc: Activity as tolerated Other activity instructions: wiggle fingers, keep hand elevated Bathing Instructions: Shower-keep dressing dry Weight Bearing Status after Di: As tolerated Diet after Discharge Diet after Discharge: Regular Diet Texture: Regular Liquid Texture: Thin Liquid Swallowing Supervision: None needed Wound Incision Care Wound/Incision Care: Ice to area for comfort, Keep wound/cast CDI, Keep wound elevated, Change dressing, No wound care needed Other wound/incision instructi: ok to change in 2 days Checks after Discharge Checks after discharge: Check blood press - daily Contacting the DRMaria Luisa after DC Call your doctor for: Concerns you may have Follow-Up Follow up with: Conrad in 2 wks Treatment/Equipment after DC Adaptive Equipment Issued: None Discharge Respiratory Equipmen: Oxygen IRIS ARIAS II, MD January 14, 2019 09:13
--- NOTE | 2019-01-14 09:19 | PDOC4 ---
Operative Note Operative Note Date of procedure: 01/14/2018 Surgeon: Raghu Arias Preoperative diagnosis: Right third trigger finger Postoperative diagnosis: Same Procedure performed: Open right third trigger finger release Tourniquet time 13 minutes Blood loss: 2 mL Anesthesia: Conscious sedation plus local Complications: None Findings: Thickened nodule and flexor tendon Reason for procedure: Patient is very pleasant 73-year-old female who had seen and evaluated in my outpatient clinic, we had tried anti-inflammatories and an injection to alleviate her symptoms of catching and locking in her right third digit. The injection gave only temporary relief. We had a discussion of the risks, benefits, and alternatives to the above surgery and she wished to proceed. Description of procedure: Patient was greeted in the operative holding area where the correct digit was verified and marked her to back to the operative suite and her antibiotics are started as she was brought back. Once in the operating room, she was transferred gently supine to the operating table and secured the bed with all pressure points padded. She underwent successful induction of her sedation. A nonsterile tourniquet was applied to her right upper extremity, the hand board attachment was secured to the operating room table. The right upper extremity was prepped and draped in our usual sterile fashion we conducted our standard preoperative timeout. After this, I palpated for her metacarpal head at her third digit and made an incision in her palm just proximal to this. I dissected subcutaneous tissues tissue with a mosquito and placed my regnal retractors. Prior to incision, I had infiltrated the subcutaneous tissue with a 50-50 mixture of a local anesthetic without epinephrine. After visualizing the tendon sheath, I used a scalpel to open it proximally and then tenotomies to complete the release, taking care to ensure there was no overlying tissue and I had appropriate visualization. After this, I transected the A1 kathryn. I was able to deliver the tendons from the incision to open chart accomplish a complete release. After this, I used bipolar cautery for hemostasis. The tourniquet had been let down. Skin was closed with 3-0 nylon. Xeroform and a sterile bulky soft dressing was applied. Patient was awakened from anesthesia. She tolerated surgery well. No complications. All counts were correct 2 prior to wound closure. At the conclusion of the surgery, she was awakened and transferred gently supine to the recovery room cart and taken to PACU in a stable and extubated condition. Postoperative plan is to encourage elevation and gentle active range of motion in her digits. I will see her back in 2 weeks, sooner should a problem arise RAGHU ARIAS II, MD January 14, 2019 09:19
[2019-01-14 10:00] VITALS: BP 110/54
[2019-01-14] MEDS ORDERED: ceFAZolin SODIUM 1 GM VIAL ONE (10:16)
== END 2019-01-14 10:30 | disposition home or self-care (01) ==
LOC: SURG 06:51
PROVIDERS: ATTEND Orthopaedic Surgery Sports Medicine
DX: M65.331 Trigger finger, right middle finger (principal); J44.9 Chronic obstructive pulmonary disease, unspecified; J84.10 Pulmonary fibrosis, unspecified; E78.5 Hyperlipidemia, unspecified; I10 Essential (primary) hypertension; G40.909 Epilepsy, unspecified, not intractable, without status epilepticus; Z90.710 Acquired absence of both cervix and uterus; Z98.42 Cataract extraction status, left eye; Z98.41 Cataract extraction status, right eye; Z96.1 Presence of intraocular lens; Z95.5 Presence of coronary angioplasty implant and graft; Z98.890 Other specified postprocedural states; E89.0 Postprocedural hypothyroidism; F17.210 Nicotine dependence, cigarettes, uncomplicated; Z79.899 Other long term (current) drug therapy; Z88.2 Allergy status to sulfonamides
CPT/HCPCS: 26055; A7015; J0690; J0696; J2001; J2704; J3490

== ENCOUNTER → 2019-03-17 | Outpatient (CLI) | payer MEDICARE ==
[~2019-03-17] MED LIST changes: +BENZ100C PO; -BUPIVACAINE MPF 0.5% 30 ML VIAL. ONE; -LIDOCAINE 1% PF 30 ML VIAL. ONE; -ceFAZolin SODIUM IV Push 1 GM VIAL. IVP PRN
--- NOTE | 2019-03-17 15:38 | KCIC ---
CHEST PA LATERAL History: Shortness of breath Comparison: 10/08/2018 CT chest without contrast, 11/05/2016 two-view chest x-ray exam . Findings: Frontal and lateral views of chest were obtained. The cardiomediastinal silhouette is normal. Pulmonary vasculature is normal. The lungs are clear. Pulmonary hyperinflation noted. Diffuse interstitial thickening of lung acsas again seen. No pleural effusion or pneumothorax is seen. There is no acute bone abnormality. IMPRESSION: No acute cardiopulmonary process. COPD. Electronically signed by: Joby Newman MD (03/17/2019 3:35 PM) [facility]
== END | disposition home or self-care (01) ==
LOC: KCIC 13:48
PROVIDERS: ATTEND Internal Medicine Critical Care Medicine
DX: J44.9 Chronic obstructive pulmonary disease, unspecified (principal); G47.33 Obstructive sleep apnea (adult) (pediatric)
CPT/HCPCS: 71046

== ENCOUNTER 2019-03-18 15:26 | Emergency (ER) | payer MEDICARE ==
[~2019-03-18] VITALS: Ht 157.5 cm; Wt 79.8 kg
[~2019-03-18 15:26] MED LIST changes: -BENZ100C PO
--- NOTE | 2019-03-18 17:23 | PHYS DOC ---
Past Medical History Past Medical History: COPD, High Cholesterol, Hypertension, Hypothyroid, Lung Disease, Seizure, Other Additional Past Medical Histor: pulm fibrosis, (DIANDRA SCRUGGS DO) Past Surgical History: Other Additional Past Surgical Histo: cardiac stent placement, CSF leak (DIANDRA SCRUGGS DO) Alcohol Use: None Drug Use: None (DIANDRA SCRUGGS DO) Adult General Chief Complaint Chief Complaint: SHORTNESS OF BREATH HPI HPI Patient is a 74 year old female with past medical history of COPD who presents with "coughing up blood" for 4-5 days. She arrives in the emergency department via POV with spouse. She states she has been coughing up streaks of blood with mucus about twice a day. She also admits to sore throat that preceded these symptoms. She denies any fever, chills, nausea, vomiting, diarrhea, or constipation. She denies abdominal pain or chest pain. She denies any current shortness of breath. She has been using her nebulizer more frequently lately which has helped with her symptoms. She uses CPAP at home when she goes to sleep. She is currently on 2 L of oxygen with saturations at 94-95%. Denies trauma. Denies leg swelling or calf tenderness. Denies fever/chills. (DIANDRA SCRUGGS DO) Review of Systems Review of Systems Constitutional: Denies fever or chills Eyes: Denies change in visual acuity, redness, or eye pain HENT: Denies nasal congestion; reports sore throat Respiratory: Reports cough and shortness of breath Cardiovascular: Denies chest pain or palpitations GI: Denies abdominal pain, nausea, vomiting, or diarrhea : Denies dysuria or hematuria Musculoskeletal: Denies back pain or joint pain Integument: Denies rash or skin lesions Neurologic: Denies headache, focal weakness or sensory changes Complete systems were reviewed and found to be within normal limits, except as documented in this note. (DIANDRA SCRUGGS DO) Current Medications Current Medications Current Medications Medications (Trade) Dose Ordered Sig/Carmella Start Time Stop Time Status Last Admin Dose Admin Albuterol/ Ipratropium (Duoneb) 3 ml 1X ONCE 03/18/19 17:30 03/18/19 17:31 DC 03/18/19 17:44 3 ML Ceftriaxone Sodium (Rocephin) 1 gm 1X ONCE 03/18/19 18:15 03/18/19 18:16 DC 03/18/19 18:46 1 GM Dexamethasone Sodium Phosphate (Decadron) 10 mg 1X ONCE 03/18/19 17:30 03/18/19 17:31 DC 03/18/19 17:27 10 MG Iohexol (Omnipaque 350 Mg/ml) 100 ml 1X ONCE 03/18/19 18:15 03/18/19 18:16 DC 03/18/19 18:26 100 ML (SUBHA BILLINGSLEY DO) Allergies Allergies Allergies Coded Allergies Type Severity Reaction Last Updated Verified Sulfa (Sulfonamide Antibiotics) Allergy Intermediate Rash 01/14/19 No (SUBHA BILLINGSLEY DO) Physical Exam Physical Exam Constitutional: Well developed, well nourished, no acute distress, non-toxic appearance HENT: Normocephalic, atraumatic, oropharynx moist, nose normal Eyes: Conjunctiva normal, no discharge Neck: Normal range of motion, no tenderness, supple, no meningeal signs Cardiovascular: Heart rate normal and regular rhythm Lungs & Thorax: Bilateral breath sounds diminished to bases, some scattered wheezing noted Abdomen: Soft, no tenderness Skin: Warm, dry, no erythema, no rash Back: No tenderness, no CVA tenderness Extremities: No tenderness, ROM intact, no edema Neurologic: Alert and oriented X 3, no focal deficits noted Psychologic: Affect normal, judgement normal (DIANDRA SCRUGGS DO) Current Patient Data Vital Signs Vital Signs Date Time Temp Pulse Resp B/P (MAP) Pulse Ox O2 Delivery O2 Flow Rate FiO2 03/18/19 17:46 94 Nasal Cannula 2.0 03/18/19 16:42 88 16 137/70 (92) 03/18/19 16:15 98.0 98.0 (SUBHA BILLINGSLEY DO) Lab Values Laboratory Tests Test 03/18/19 16:43 03/18/19 17:37 White Blood Count 7.4 x10^3/uL (4.0-11.0) Red Blood Count 4.64 x10^6/uL (3.50-5.40) Hemoglobin 15.3 g/dL (12.0-15.5) Hematocrit 44.2 % (36.0-47.0) Mean Corpuscular Volume 95 fL (79-100) Mean Corpuscular Hemoglobin 33 pg (25-35) Mean Corpuscular Hemoglobin Concent 35 g/dL (31-37) Red Cell Distribution Width 13.3 % (11.5-14.5) Platelet Count 132 x10^3/uL (140-400) L Neutrophils (%) (Auto) 75 % (31-73) H Lymphocytes (%) (Auto) 16 % (24-48) L Monocytes (%) (Auto) 8 % (0-9) Eosinophils (%) (Auto) 0 % (0-3) Basophils (%) (Auto) 1 % (0-3) Neutrophils # (Auto) 5.6 x10^3/uL (1.8-7.7) Lymphocytes # (Auto) 1.2 x10^3/uL (1.0-4.8) Monocytes # (Auto) 0.6 x10^3/uL (0.0-1.1) Eosinophils # (Auto) 0.0 x10^3/uL (0.0-0.7) Basophils # (Auto) 0.0 x10^3/uL (0.0-0.2) Sodium Level 139 mmol/L (136-145) Potassium Level 4.1 mmol/L (3.5-5.1) Chloride Level 101 mmol/L (98-107) Carbon Dioxide Level 29 mmol/L (21-32) Anion Gap 9 (6-14) Blood Urea Nitrogen 9 mg/dL (7-20) Creatinine 0.6 mg/dL (0.6-1.0) Estimated GFR (Cockcroft-Gault) 98.3 BUN/Creatinine Ratio 15 (6-20) Glucose Level 86 mg/dL (70-99) Lactic Acid Level 0.9 mmol/L (0.4-2.0) Calcium Level 8.8 mg/dL (8.5-10.1) Total Bilirubin 0.3 mg/dL (0.2-1.0) Aspartate Amino Transferase (AST) 23 U/L (15-37) Alanine Aminotransferase (ALT) 35 U/L (14-59) Alkaline Phosphatase 128 U/L (46-116) H Creatine Kinase 34 U/L (26-192) Creatine Kinase MB (Mass) 0.5 ng/mL (0.0-3.6) Creatine Kinase MB Relative Index % (0-4) Troponin I Quantitative < 0.017 ng/mL (0.000-0.055) RP-Mvg-O-Type Natriuretic Peptide 105 pg/mL (0-124) Total Protein 6.6 g/dL (6.4-8.2) Albumin 3.5 g/dL (3.4-5.0) Albumin/Globulin Ratio 1.1 (1.0-1.7) Urine Collection Type Unknown Urine Color Yellow Urine Clarity Clear Urine pH 5.5 Urine Specific [place] <=1.005 Urine Protein Negative mg/dL (NEG-TRACE) Urine Glucose (UA) Negative mg/dL (NEG) Urine Ketones (Stick) Negative mg/dL (NEG) Urine Blood Negative (NEG) Urine Nitrite Negative (NEG) Urine Bilirubin Negative (NEG) Urine Urobilinogen Dipstick 0.2 mg/dL (0.2 mg/dL) Urine Leukocyte Esterase Large (NEG) Urine RBC 0 /HPF (0-2) Urine WBC 20-40 /HPF (0-4) Urine Squamous Epithelial Cells Mod /LPF Urine Amorphous Sediment Present /HPF Urine Bacteria Few /HPF (0-FEW) Laboratory Tests 03/18/19 16:43 Laboratory Tests 03/18/19 16:43 (SUBHA BILLINGSLEY DO) Lab Values Laboratory Tests Test 03/18/19 16:43 03/18/19 17:37 White Blood Count 7.4 x10^3/uL (4.0-11.0) Red Blood Count 4.64 x10^6/uL (3.50-5.40) Hemoglobin 15.3 g/dL (12.0-15.5) Hematocrit 44.2 % (36.0-47.0) Mean Corpuscular Volume 95 fL (79-100) Mean Corpuscular Hemoglobin 33 pg (25-35) Mean Corpuscular Hemoglobin Concent 35 g/dL (31-37) Red Cell Distribution Width 13.3 % (11.5-14.5) Platelet Count 132 x10^3/uL (140-400) L Neutrophils (%) (Auto) 75 % (31-73) H Lymphocytes (%) (Auto) 16 % (24-48) L Monocytes (%) (Auto) 8 % (0-9) Eosinophils (%) (Auto) 0 % (0-3) Basophils (%) (Auto) 1 % (0-3) Neutrophils # (Auto) 5.6 x10^3/uL (1.8-7.7) Lymphocytes # (Auto) 1.2 x10^3/uL (1.0-4.8) Monocytes # (Auto) 0.6 x10^3/uL (0.0-1.1) Eosinophils # (Auto) 0.0 x10^3/uL (0.0-0.7) Basophils # (Auto) 0.0 x10^3/uL (0.0-0.2) Sodium Level 139 mmol/L (136-145) Potassium Level 4.1 mmol/L (3.5-5.1) Chloride Level 101 mmol/L (98-107) Carbon Dioxide Level 29 mmol/L (21-32) Anion Gap 9 (6-14) Blood Urea Nitrogen 9 mg/dL (7-20) Creatinine 0.6 mg/dL (0.6-1.0) Estimated GFR (Cockcroft-Gault) 98.3 BUN/Creatinine Ratio 15 (6-20) Glucose Level 86 mg/dL (70-99) Lactic Acid Level 0.9 mmol/L (0.4-2.0) Calcium Level 8.8 mg/dL (8.5-10.1) Total Bilirubin 0.3 mg/dL (0.2-1.0) Aspartate Amino Transferase (AST) 23 U/L (15-37) Alanine Aminotransferase (ALT) 35 U/L (14-59) Alkaline Phosphatase 128 U/L (46-116) H Creatine Kinase 34 U/L (26-192) Creatine Kinase MB (Mass) 0.5 ng/mL (0.0-3.6) Creatine Kinase MB Relative Index % (0-4) Troponin I Quantitative < 0.017 ng/mL (0.000-0.055) EQ-Bmw-L-Type Natriuretic Peptide 105 pg/mL (0-124) Total Protein 6.6 g/dL (6.4-8.2) Albumin 3.5 g/dL (3.4-5.0) Albumin/Globulin Ratio 1.1 (1.0-1.7) Urine Collection Type Unknown Urine Color Yellow Urine Clarity Clear Urine pH 5.5 Urine Specific [place] <=1.005 Urine Protein Negative mg/dL (NEG-TRACE) Urine Glucose (UA) Negative mg/dL (NEG) Urine Ketones (Stick) Negative mg/dL (NEG) Urine Blood Negative (NEG) Urine Nitrite Negative (NEG) Urine Bilirubin Negative (NEG) Urine Urobilinogen Dipstick 0.2 mg/dL (0.2 mg/dL) Urine Leukocyte Esterase Large (NEG) Urine RBC 0 /HPF (0-2) Urine WBC 20-40 /HPF (0-4) Urine Squamous Epithelial Cells Mod /LPF Urine Amorphous Sediment Present /HPF Urine Bacteria Few /HPF (0-FEW) Laboratory Tests 03/18/19 16:43 Laboratory Tests 03/18/19 16:43 (DIANDRA SCRUGGS DO) EKG EKG 03/18/2019 @ 17:30 shows normal sinus rhythm at [address] elevations.[] (DIANDRA SCRUGGS DO) Radiology/Procedures Radiology/Procedures [] (DIANDRA SCRUGGS DO) Impressions: PROCEDURE: CT ANGIOGRAPHY CHEST CT arteriogram of the chest. HISTORY: Dyspnea, hemoptysis CT arteriogram of the chest was done using 100 mL Omnipaque 350 contrast. Comparison is made with a noncontrast study from March 08. Mediastinal lymph nodes are upper normal in size as are the hilar nodes. There is thickening of the wall of the esophagus at the level the juan [place]ablo. Visualized portions of liver and spleen are unremarkable. There is no pleural effusion. There are emphysematous changes in the lungs. There is peribronchial thickening more prominent in the lung bases. There is mucous plugging in the lung bases. There is mild bronchiectasis. There are interstitial infiltrates in the lungs and groundglass infiltrates more in the lung bases. Peribronchial thickening is worsening compared to the recent study. There is an infiltrate along the minor fissure in the right middle lobe which is new. The upper aspect of the liver and spleen are unremarkable. IMPRESSION: 1. Increased peribronchial thickening and groundglass infiltrates in the lungs possible bronchitis or an early pneumonia. 2. Small focal infiltrate in the right middle lobe. 3. Mild changes of chronic obstructive pulmonary disease. 4. Thickening of the wall of the esophagus at the juan p[place], a mass is possible. (SUBHA BILLINGSLEY DO) Course & Med Decision Making Course & Med Decision Making Patient presents with SOA with report of "hemoptysis". EKG stable. Labs obtained and pending. CTA ordered and pending. Sign out given to Dr. Billingsley for further evaluation and final disposition. Discussed current findings and plan with patient, who acknowledges understanding and agreement. (DIANDRA SCRUGGS DO) Course & Med Decision Making ED course: Evaluation reveals a 74-year-old female that was coughing up blood. Her laboratory studies were unremarkable. Her CT scan did show evidence of an early pneumonia. Her urinalysis showed evidence of urinary tract infection. I will go ahead and start her on antibiotics that will cover both the lung in the kidney. I will start her On Levaquin at home. (SUBHA BILLINGSLEY DO) Dragon Disclaimer Dragon Disclaimer This electronic medical record was generated, in whole or in part, using a voice recognition dictation system. (DIANDRA SCRUGGS DO) Departure Departure Impression: Primary Impression: Pneumonia Additional Impression: Urinary tract infection Disposition: HOME, SELF-CARE Condition: IMPROVED Referrals: NIEVES SALMON MD (PCP) Patient Instructions: Pneumonia, Adult, Urinary Tract Infection Additional Instructions: Take medications as directed. Return to the emergency department with any new or concerning symptoms Scripts Levofloxacin (LEVAQUIN) 500 Mg Tablet 1 TAB PO DAILY for urinary tract infection, #10 TAB Prov: SUBHA BILLINGSLEY DO 03/18/19 Problem Qualifiers Primary Impression: Pneumonia Pneumonia type: due to unspecified organism Laterality: bilateral Lung location: unspecified part of lung Qualified Codes: J18.9 - Pneumonia, unspecified organism Additional Impression: Urinary tract infection Urinary tract infection type: site unspecified Hematuria presence: without hematuria Qualified Codes: N39.0 - Urinary tract infection, site not specified DIANDRA SCRUGGS DO Mar 18, 2019 17:23 SUBHA BILLINGSLEY DO Mar 18, 2019 19:14
[2019-03-18 17:28] LABS: BASO % 1 % (0-3); EOS % 0 % (0-3); HEMATOCRIT 44.2 % (36.0-47.0); HEMOGLOBIN 15.3 g/dL (12.0-15.5); LYMPH # 1.2 x10^3/uL (1.0-4.8); LYMPH % 16 % (24-48); MEAN CORPUSCULAR HEMOGLOBIN 33 pg (25-35); MEAN CORPUSCULAR HGB CONC 35 g/dL (31-37); MEAN CORPUSCULAR VOLUME 95 fL (79-100); MONO # 0.6 x10^3/uL (0.0-1.1); MONO % 8 % (0-9); NEUT # 5.6 x10^3/uL (1.8-7.7); NEUT % 75 % (31-73); PLATELET COUNT 132 x10^3/uL (140-400); RED BLOOD COUNT 4.64 x10^6/uL (3.50-5.40); RED CELL DISTRIBUTION WIDTH 13.3 % (11.5-14.5); WHITE BLOOD COUNT 7.4 x10^3/uL (4.0-11.0)
[2019-03-18] MEDS ORDERED: IPRATRPIUM/ALBUTEROL 0.5/2.5MG 3 ML NEBU. NEB ONE (17:30)
[2019-03-18] MEDS ORDERED: DEXAMETHASONE SOD PHOS 20 MG/5 ML VIAL. IV ONE (17:30)
[2019-03-18 17:44] LABS: BILIRUBIN,URINE NEGATIVE (NEG); CLARITY,URINE CLEAR; COLOR,URINE YELLOW; NITRITE,URINE NEGATIVE (NEG); PH,URINE 5.5; PROTEIN,URINE NEGATIVE (NEG-TRACE); UROBILINOGEN,URINE 0.2 mg/dL (0.2 mg/dL)
[2019-03-18 17:49] LABS: SQUAMOUS EPITHELIAL CELL,UR MOD /LPF
[2019-03-18 17:52] LABS: BACTERIA,URINE FEW /HPF (0-FEW); RBC,URINE 0 /HPF (0-2); WBC,URINE 20-40 /HPF (0-4)
[2019-03-18 17:53] LABS: AMORPHOUS SEDIMENT,UR PRESENT /HPF
[2019-03-18 17:55] LABS: CALCIUM 8.8 mg/dL (8.5-10.1); CREATININE 0.6 mg/dL (0.6-1.0); GFR 98.3; POTASSIUM 4.1 mmol/L (3.5-5.1)
[2019-03-18 18:00] LABS: ALBUMIN 3.5 g/dL (3.4-5.0); ALBUMIN/GLOBULIN RATIO 1.1 (1.0-1.7); TOTAL BILIRUBIN 0.3 mg/dL (0.2-1.0); TOTAL PROTEIN 6.6 g/dL (6.4-8.2)
[2019-03-18 18:08] LABS: CREATINE KINASE 34 U/L (26-192)
[2019-03-18] MEDS ORDERED: IOHEXOL 350 MG/ML 100 ML VIAL. IV ONE (18:15)
[2019-03-18] MEDS ORDERED: cefTRIAXone IV Push 1 GM VIAL. IVP ONE (18:15)
--- NOTE | 2019-03-18 18:51 | RAD ---
CT arteriogram of the chest. HISTORY: Dyspnea, hemoptysis CT arteriogram of the chest was done using 100 mL Omnipaque 350 contrast. Comparison is made with a noncontrast study from March 08. Mediastinal lymph nodes are upper normal in size as are the hilar nodes. There is thickening of the wall of the esophagus at the level the juan pablo. Visualized portions of liver and spleen are unremarkable. There is no pleural effusion. There are emphysematous changes in the lungs. There is peribronchial thickening more prominent in the lung bases. There is mucous plugging in the lung bases. There is mild bronchiectasis. There are interstitial infiltrates in the lungs and groundglass infiltrates more in the lung bases. Peribronchial thickening is worsening compared to the recent study. There is an infiltrate along the minor fissure in the right middle lobe which is new. The upper aspect of the liver and spleen are unremarkable. IMPRESSION: 1. Increased peribronchial thickening and groundglass infiltrates in the lungs possible bronchitis or an early pneumonia. 2. Small focal infiltrate in the right middle lobe. 3. Mild changes of chronic obstructive pulmonary disease. 4. Thickening of the wall of the esophagus at the juan pablo, a mass is possible. PQRS Compliance Statement: One or more of the following individualized dose reduction techniques were utilized for this examination: 1. Automated exposure control 2. Adjustment of the mA and/or kV according to patient size 3. Use of iterative reconstruction technique Electronically signed by: Stuart Hartman MD (03/18/2019 6:48 PM) [facility]
[2019-03-18 19:04] VITALS: BP 129/60
[2019-03-18] MEDS ORDERED: LEVO500T59 PO ×2 (19:13→19:21)
[2019-03-18] MEDS ORDERED: BENZ100C PO (19:31)
--- NOTE | 2019-03-19 06:30 | EKG ---
[facility] [address] [place] [address] Test Date: 2019-03-18 Test Time: 17:30:12 Pat Name: NOLBERTO VILLAVICENCIO Department: Room: Gender: F Reinforcer: : 1945 Requested By: DIANDRA SCRUGGS Order Number: [id number] Reading MD: Measurements Intervals [place] Rate: 83 P: 23 NC: 150 QRS: 49 QRSD: 94 T: 31 QT: 376 QTc: 448 Interpretive Statements SINUS RHYTHM NO SPECIFIC ECG ABNORMALITIES RI6.01 No previous ECG available for comparison
== END 2019-03-18 19:29 | disposition home or self-care (01) ==
LOC: ER 15:26
DX: J18.9 Pneumonia, unspecified organism (principal); N39.0 Urinary tract infection, site not specified; J44.9 Chronic obstructive pulmonary disease, unspecified; E78.00 Pure hypercholesterolemia, unspecified; I10 Essential (primary) hypertension; E03.9 Hypothyroidism, unspecified; Z95.5 Presence of coronary angioplasty implant and graft; Z88.2 Allergy status to sulfonamides
CPT/HCPCS: 36415; 71275; 80053; 81001; 82553; 83605; 83880; 84484; 85025; 87086; 93005; 94640; 96374; 96375; 99285; J0696; J1100; J7620; Q9967

== ENCOUNTER → 2019-06-10 | Outpatient (CLI) | payer MEDICARE ==
[~2019-06-10] MED LIST changes: +BENZ100C PO; +SIMV40TA18 PO; -SIMV40TA3 PO
--- NOTE | 2019-06-10 11:34 | CARD ---
MR#: [id number] Date of Study: 06/10/2019 Ordering Physician: JAMAAL WILKINS, Referring Physician: JAMAAL WILKINS, Tech: Macrina Saavedra [facility] APPROVED REPORT EXAM: Two-dimensional and M-mode echocardiogram with Doppler and color Doppler. Other Information Quality : Good INDICATION Cardiac Disease: CAD 2D DIMENSIONS RVDd2.5 (2.9-3.5cm)Left Atrium(2D)3.1 (1.6-4.0cm) IVSd1.0 (0.7-1.1cm)Aortic Root(2D)2.5 (2.0-3.7cm) LVDd4.1 (3.9-5.9cm)LVOT Diameter2.0 (1.8-2.4cm) PWd0.9 (0.7-1.1cm)LVDs2.6 (2.5-4.0cm) FS (%) 37.5 %SV51.8 ml LVEF(%)65.0 (>50%) Aortic Valve AoV Peak Jacob.138.9cm/sAoV VTI25.1cm AO Peak GR.7.7mmHgLVOT Peak Jacob.115.8cm/s AO Mean GR.5mmHgAVA (VMAX)2.57cm2 KORI (VTI)2.80cm2 Mitral Valve MV E Ofhenfxz12.6cm/sMV DECEL YKRG160rq MV A Gusqswvh797.6cm/sE/A Ratio0.9 Tricuspid Valve TR P. Saasbrho975gi/sRAP RYAGQUEJ0mgHu TR Peak Gr.48aeHsUMEG27jnWc Pulmonary Vein S1 Yhoxcwvd08.7cm/sD2 Wpokgsfy48.5cm/s LEFT VENTRICLE The left ventricle is normal size. There is normal left ventricular wall thickness. The left ventricu lar systolic function is normal and the ejection fraction is within normal range. The Ejection Fracti on is 60-65%. There is normal LV segmental wall motion. Transmitral Doppler flow pattern is Grade I-a bnormal relaxation pattern. RIGHT VENTRICLE The right ventricle is normal size. The right ventricular systolic function is normal. ATRIA The left atrium size is normal. The right atrium size is normal. The interatrial septum is intact wit h no evidence for an atrial septal defect or patent foramen ovale as noted on 2-D or Doppler imaging. AORTIC VALVE The aortic valve is calcified but opens well. Doppler and Color Flow revealed no significant aortic r egurgitation. There is no significant aortic valvular stenosis. MITRAL VALVE The mitral valve is calcified but opens well. Mitral annular calcification is mild. There is no evide nce of mitral valve prolapse. There is no mitral valve stenosis. Doppler and Color-flow revealed trac e to mild mitral regurgitation. TRICUSPID VALVE The tricuspid valve is normal in structure and function. Doppler and Color Flow revealed trace tricus pid regurgitation. The PA pressure was estimated at 17 mmHg. There is no tricuspid valve stenosis. PULMONIC VALVE The pulmonic valve is not well visualized. Doppler and Color Flow revealed mild pulmonic valvular reg urgitation. There is no pulmonic valvular stenosis. GREAT VESSELS The aortic root is normal in size. The ascending aorta is normal in size. The IVC is normal in size a nd collapses >50% with inspiration. PERICARDIAL EFFUSION There is no evidence of significant pericardial effusion. Critical Notification Critical Value: No <Conclusion> The left ventricular systolic function is normal and the ejection fraction is within normal range. Th e Ejection Fraction is 60-65%. There is normal LV segmental wall motion. Signed by : Jamaal Wilkins, Electronically Approved : 06/10/2019 11:34:10
== END | disposition home or self-care (01) ==
LOC: ECHO 09:37
PROVIDERS: ATTEND Internal Medicine Cardiovascular Disease
DX: I08.8 Other rheumatic multiple valve diseases (principal)
CPT/HCPCS: 93306

== ENCOUNTER → 2019-07-03 | Outpatient (CLI) | payer MEDICARE ==
[~2019-07-03] MED LIST changes: +REGADENOSON 0.4 MG/5 ML DISP.SYRIN. IV ONE; -SIMV40TA18 PO; +SIMV40TA3 PO
--- NOTE | 2019-07-03 11:38 | RAD ---
MR#: [id number] Date of Study: 07/03/2019 Ordering Physician: JAMAAL WILIKNS, Referring Physician: ADELE SORENSEN Tech: SHANDRA Marino APPROVED REPORT Test Type: Pharmacological Stress Nurse/Tech: Laura Daniels R.N. Test Indications: cad Cardiac History: stents 2004, copd Medications: see ehr Medical History: see ehr Resting ECG: SR Resting Heart Rate: 76 bpm Resting Blood Pressure: 123/69mmHg Pretest Chest Pain: No chest pain Nurse/Tech Notes lungs diminished, pt on O2 at 2L/nc, heart rate regular Consent: The procedure was explained to the patient in lay terms. Informed consent was witnessed. Brian eout was entered into [employer]. History and Stress Test performed by KIRSTY Whitehead, HERBIE (R) (N) Pharm. Details Pharmacologic stress testing was performed using 0.4mg per 5ml of regadenoson given intravenously ove r 7-10 seconds. Stress Symptoms No chest pain or symptoms. pt c/o sharp upper abd pain, mid chest pain that resolved during recovery , no rhythm changes noted POST EXERCISE Reason for Termination: Infusion complete Target HR: No Max HR: 106 bpm Max Blood Pressure: 123/60mmHg Chest Pain: Yes. see above Arrhythmia: No. ST Change: No. INTERPRETATION Stress EKG Conclusion: The resting EKG shows a sinus rhythm with mild nonspecific ST-T wave changes. The stress EKG shows no significant changes from baseline. No EKG evidence of stressed induced ischemia. Imaging Protocol IMAGE PROTOCOL: Rest Tc-99m/stress Tc-99m 1 day Rest: Stress: Viability: Radiopharm.Tc99m PpjuhrgzySr72e Sestamibi Xyos94xUm 33mCi Duration 15min. 13min. Img Date 07/03/2019 07/03/2019 Inj-Img Qsmw00iry. 60min. Rest Admin Site:IV - Right AntecubitalAdministrator:SHANDRA Marino Stress Admin Site: IV - Right AntecubitalAdministrator: KIRSTY Whitehead, HERBIE (R)(N) STRESS DATA End Diast. Vol.70.0mlLVEDV index BSA39.0ml End Syst. Vol.16.0mlLVESV index BSA9.0ml Myocardial Pdyr617.0gEject. Abfcemwn97.0% Stress Scores Regional WT0.00Summed WT0.00 Regional WM0.00Summed WM0.00 LV Perfusion The stress scans showed no significant defects. The rest scans showed no significant defects. Nuclear imaging shows no reversible ischemia or infarct. Wall Motion Left ventricular systolic function is normal with no regional wall motion abnormalities and an ejecti on fraction of greater than 70%. LV Perf. Quant 17 Seg. SSS0.00 17 Seg. SRS0.00 17 Seg. SDS0.00 Stress Defect Extent (% LAD)0.00Rest Defect Extent (% LAD)0.00Rev. Defect Extent (% LAD)0.00 Stress Defect Extent (% LCX) 0.00Rest Defect Extent (% LCX)0.00Rev. Defect Extent (% LCX)0.00 Stress Defect Extent (% RCA)0.00Rest Defect Extent (% RCA)0.00Rev. Defect Extent (% RCA)0.00 Stress Defect Extent (% MILO)0.00Rest Defect Extent (% MILO)0.00Rev. Defect Extent (% MILO)0.00 Conclusion 1. No EKG evidence of stressed induced ischemia. 2. Nuclear imaging shows no reversible ischemia or infarct. 3. Normal left ventricular systolic function with an ejection fraction of greater than 70%. 4. Low risk Lexiscan nuclear stress test. Signed by : Juan Bermudez MD Electronically Approved : 07/03/2019 11:38:00
--- NOTE | 2019-07-06 08:58 | RAD ---
MR#: [id number] Date of Study: 07/03/2019 Ordering Physician: JAMAAL WILKINS, Referring Physician: JAMAAL WILKINS, Tech: Idania Larsen RDMS, RVT APPROVED REPORT Patient Location: OUT-PATIENT Laterality:Bilateral Indications HISTORY OF CAROTID STENOSIS ON EXAM OF 03/04/2018 Doppler Spectral Velocity Analysis Right Left pCCA 120/21 cm/spCCA 100/19 cm/s mCCA 125/20 cm/smCCA 85/21 cm/s dCCA 87/19 cm/sdCCA 57/15 cm/s Bulb 70/13 cm/sBulb 52/11 cm/s ECA 98/11 cm/sECA 104/3 cm/s pICA 70/13 cm/spICA 130/35 cm/s Christina 74/23 cm/smICA 130/32 cm/s dICA 70/19 cm/sdICA 102/27 cm/s Vert. 39/9 cm/sVert. 52/18 cm/s Subcl. 96/11 cm/sSubcl. 108/20 cm/s ICA/CCA 0.59ICA/CCA 1.30 Findings Grayscale images of the bilateral carotid vessels demonstrate mild carotid bifurcation plaque on the right side and moderate plaque on the left side at the level of the bifurcation. Spectral waveforms and color Doppler of the right internal carotid artery demonstrate overall 0 to le ss than 50% stenosis based on velocity criteria. The vertebral velocities are antegrade. No significa nt stenosis is noted on the right side. On the left side there is likely moderate stenosis involving the internal carotid artery at 50-69% ba sed on velocity criteria. No focal high-grade stenosis identified. Vertebral velocities are antegrad e. Critical Notification Critical Value: No <Conclusion> 1. Moderate left-sided disease. No significant critical stenosis identified. Signed by : Jamaal Wilkins, Electronically Approved : 07/06/2019 08:58:05
== END | disposition home or self-care (01) ==
LOC: NM 13:12
PROVIDERS: ATTEND Internal Medicine Cardiovascular Disease
DX: I65.23 Occlusion and stenosis of bilateral carotid arteries (principal); I25.10 Atherosclerotic heart disease of native coronary artery without angina pectoris; I73.9 Peripheral vascular disease, unspecified; J44.9 Chronic obstructive pulmonary disease, unspecified; Z95.5 Presence of coronary angioplasty implant and graft
CPT/HCPCS: 78452; 93017; 93880; A9500; J2785

== ENCOUNTER → 2019-10-02 | Day surgery (SDC) | payer MEDICARE ==
[~2019-10-02] MED LIST changes: +GABA600T7 PO; +IV RINGERS,LACTATED 1000ML 1,000 ML IV SCH; +PROPOFOL 20 ML IV ONE; -REGADENOSON 0.4 MG/5 ML DISP.SYRIN. IV ONE; +SIMV40TA18 PO; -SIMV40TA3 PO
[2019-10-02 08:03] VITALS: BP 99/54
--- NOTE | 2019-10-02 11:17 | CONS ---
DATE OF CONSULTATION: 10/02/2019 REFERRING PHYSICIAN: Dr. Jorge L Castro. REASON FOR CONSULTATION: Diarrhea and weight loss. HISTORY OF PRESENT ILLNESS: A 74-year-old female with past medical history significant for COPD, osteoporosis, hyperlipidemia, hypothyroidism, is seen in further evaluation for 50-pound weight loss associated with some diarrhea. She states typically that she has some rectal pain and has intermittent difficulties with constipation. She had seen Dr. Valerio and was felt to have pelvic floor dysfunction. Previous colonoscopy in 2016 did reveal colonic polyps. With the continued issues, additional evaluation is requested. PAST MEDICAL HISTORY: Chronic obstructive pulmonary disease, hyperlipidemia, hypothyroidism. ALLERGIES: SULFA. MEDICATIONS: Include albuterol, Fosamax, aspirin, atorvastatin, vitamin D, ____, Levaquin, levothyroxine, Zofran, Dilantin, Spiriva, zolpidem. SOCIAL HISTORY: She is a former smoker and social drinker. FAMILY HISTORY: Significant for breast cancer with her sister, diabetes and hypertension in multiple family members. PAST SURGICAL HISTORY: Eye surgery, hysterectomy, and thyroid surgery. REVIEW OF SYSTEMS: Per records. PHYSICAL EXAMINATION: GENERAL: Reveals a thin female who is alert, cooperative, in no acute distress. LUNGS: Reveal decreased breath sounds. CARDIOVASCULAR: S1, S2 without S3, S4 or appreciable murmur. ABDOMEN: Reveals a soft abdomen, normal bowel sounds, without appreciable hepatosplenomegaly. EXTREMITIES: Reveals no cyanosis, clubbing or edema. IMPRESSION AND PLAN: Diarrhea, weight loss, history of colonic polyps, etiology is to be determined. Differential includes malabsorption, chronic pancreatitis, celiac disease, esophageal gastric and/or colonic malignancy, colonic polyps, arteriovenous malformations, diverticular disease. Therefore, I recommend upper endoscopy and colonoscopy to further assess. If this is unrevealing, then further consideration to interval CT scan would be pursued. CHRISTIANO REYES MD DR: CHRIS/kareem JOB#: [id number] / [id number]
--- NOTE | 2019-10-05 14:06 | PATHOLOGY ---
[facility] Accession Number: [id number] . 01 Material submitted: . PART A: sigmoid colon - SIGMOID POLYP PART B: colon - RANDOM COLON BX . 01 Clinical history: . Diarrhea . 02 Diagnosis: A. Colon, sigmoid, biopsy: - Adenomatous polyp. . B. Colon, random biopsies: - Findings consistent with microscopic (lymphocytic) colitis (please see microscopic description). (SKM:[facility] 10/05/2019) QTP 10/05/2019 1210 Local . 02 Electronically signed: . Wili Mayes MD, Pathologist NPI- [id number] . 01 Gross description: . A. Received in formalin labeled "Domonique Paulson, sigmoid polyp," is a 0.6 x 0.4 x 0.4 cm polypoid piece of hall soft tissue. The margin is inked and the tissue is sectioned perpendicular to the margin and submitted entirely in cassette A1. . B. Received in formalin labeled "Lorene Domonique, random colon BX diarrhea," are multiple segments of hall soft tissue measuring 2.0 x 0.8 x 0.1 cm in aggregate dimensions. The specimen is filtered and entirely submitted in cassette B1. (TSD; 10/02/2019) TOB/TOB 10/02/2019 2241 Local . 02 Microscopic: . B. Sections show multiple fragments of colonic mucosa in which increased numbers of chronic inflammatory cells are present in the lamina propria. Histologic glandular architecture is within normal limits. There is no evidence of significant acute cryptitis. An increased number of intraepithelial lymphocytes is present in the surface epithelium. The subepithelial collagen layer does not appear to be thickened. (SKM:[facility] 10/05/2019) . 02 Pathologist provided ICD-10: D12.5, K52.839 . 02 CPT . 838523, [id number] Specimen Comment: A courtesy copy of this report has been sent to [phone] Specimen Comment: Report sent to Performed at: 01 [facility] [address] [id number] MD Anderson Jean MD Phone: [phone] Performed at: 02 [facility] [address] [place], [place] [id number] MD Amari Casiano MD Phone: [phone]
== END | disposition home or self-care (01) ==
LOC: ENDOS 06:21
PROVIDERS: ATTEND Internal Medicine Gastroenterology
DX: R19.7 Diarrhea, unspecified (principal); D12.5 Benign neoplasm of sigmoid colon; K51.80 Other ulcerative colitis without complications; K64.0 First degree hemorrhoids; K57.30 Diverticulosis of large intestine without perforation or abscess without bleeding; K63.89 Other specified diseases of intestine; K29.50 Unspecified chronic gastritis without bleeding; J44.9 Chronic obstructive pulmonary disease, unspecified; M81.0 Age-related osteoporosis without current pathological fracture; E78.5 Hyperlipidemia, unspecified; E03.9 Hypothyroidism, unspecified; Z79.899 Other long term (current) drug therapy; Z88.1 Allergy status to other antibiotic agents; Z87.891 Personal history of nicotine dependence; Z90.710 Acquired absence of both cervix and uterus; Z98.890 Other specified postprocedural states
CPT/HCPCS: 43235; 45380; 45385; 88305; J2704

== ENCOUNTER → 2019-10-08 | Outpatient (CLI) | payer MEDICARE ==
[2019-10-02 08:03] VITALS: BP 99/54
[~2019-10-08] MED LIST changes: +CONTRAST GIVEN. MC PRN; +IOHEXOL 240 MG/ML 50ML VIAL. PO ONE; +IOHEXOL 300 MG/ML 100ML VIAL. IV ONE; -IV RINGERS,LACTATED 1000ML 1,000 ML IV SCH; -PROPOFOL 20 ML IV ONE
[2019-10-08 08:30] LABS: CREATININE 0.7 mg/dL (0.6-1.0); GFR 82.3
--- NOTE | 2019-10-08 10:05 | RAD ---
EXAM: CT ABDOMEN/PELVIS WITH CONTRAST. HISTORY: Diarrhea and weight loss. TECHNIQUE: Computed tomography of the abdomen and pelvis was performed after the intravenous administration of iodinated contrast. One or more of the following individualized dose reduction techniques were utilized for this examination: 1. Automated exposure control. 2. Adjustment of the mA and/or kV according to patient size. 3. Use of iterative reconstruction technique. COMPARISON: 03/13/2018. FINDINGS: Lung windows through the visualized portions of the bases reveal mild bibasilar bronchiectasis and bronchial wall thickening. There are chronic mild bibasilar interstitial infiltrates. There are atherosclerotic calcifications of the coronary arteries. Bone windows reveal no suspicious lesions. A right renal cyst measures 1.0 cm. The left kidney, adrenal glands, pancreas, spleen and liver are unremarkable. The gallbladder is surgically absent. A small infraumbilical hernia contains only fat. There is no small bowel obstruction. The uterus is surgically absent. There is no evidence of appendicitis. IMPRESSION: 1. No intra-abdominal process is identified. 2. Bibasilar bronchiectasis and mild chronic interstitial infiltrates. Correlate for chronic aspiration or other causes. 3. Small infraumbilical hernia containing only fat. Electronically signed by: Feng Davis MD (10/08/2019 10:02 AM) [facility]
== END | disposition home or self-care (01) ==
LOC: CT 07:51
PROVIDERS: ATTEND Internal Medicine Gastroenterology
DX: J47.9 Bronchiectasis, uncomplicated (principal); N28.1 Cyst of kidney, acquired; J92.9 Pleural plaque without asbestos; R91.8 Other nonspecific abnormal finding of lung field; I25.10 Atherosclerotic heart disease of native coronary artery without angina pectoris; K42.9 Umbilical hernia without obstruction or gangrene; R63.4 Abnormal weight loss; Z90.710 Acquired absence of both cervix and uterus; Z90.49 Acquired absence of other specified parts of digestive tract
CPT/HCPCS: 36415; 74177; 82565; 84520; Q9966; Q9967

== ENCOUNTER → 2020-06-07 | Outpatient (CLI) | payer MEDICARE ==
[2019-10-02 08:03] VITALS: BP 99/54
[~2020-06-07] MED LIST changes: -CONTRAST GIVEN. MC PRN; +ESTR-113 PO; -ESTR1TAB15 PO; +GADOTERATE 7.5 MMOL/15ML VIAL. IVP ONE; -IOHEXOL 240 MG/ML 50ML VIAL. PO ONE; -IOHEXOL 300 MG/ML 100ML VIAL. IV ONE
--- NOTE | 2020-06-07 13:16 | KCIC ---
MRI of the Brain without and with Contrast 06/07/2020 Clinical History: Small cell lung cancer. Technique: Unenhanced T1-weighted sagittal and axial and FLAIR, T2-weighted, gradient echo and diffusion-weighted axial images of the brain were obtained. After the intravenous administration of 14 cc of Clariscan, enhanced T1-weighted axial, sagittal and coronal images of the brain were obtained. Findings: No previous studies are available for comparison. Some of the images are degraded by patient motion. There is generalized parenchymal atrophy. Patchy, confluent and multiple small focal areas of abnormally increased signal intensity are seen within the periventricular and subcortical white matter of both cerebral hemispheres on the FLAIR and T2-weighted images consistent with areas of small vessel ischemic disease. A small area of encephalomalacia is seen involving the anterior left temporal lobe. No acute parenchymal abnormality is seen. No abnormal area of parenchymal contrast enhancement is noted. No extra-axial fluid collection is seen. There is no MRI evidence of acute ischemia/infarction. The patient appears to be post resection of a portion of the left ethmoid air cells to include the medial wall of the left maxillary sinus. Mild to moderate mucosal thickening in seen scattered throughout the paranasal sinuses. 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 There are minimal bilateral mastoid effusions Normal flow voids are seen within the major vascular structures surrounding the brain parenchyma. Impression: No acute parenchymal abnormality is seen. There is no MRI evidence of metastatic disease involving the brain parenchyma. Electronically signed by: Khalif Villalba MD (06/07/2020 1:13 PM) [id number]
== END | disposition home or self-care (01) ==
LOC: KCIC MRI 09:50
PROVIDERS: ATTEND Internal Medicine Hematology
DX: C34.90 Malignant neoplasm of unspecified part of unspecified bronchus or lung (principal); C7A.8 Other malignant neuroendocrine tumors
CPT/HCPCS: 70553; A9575

== ENCOUNTER → 2020-10-27 | Outpatient (CLI) | payer MEDICARE ==
[2020-07-21 17:30] VITALS: BP 115/54
[~2020-10-27] MED LIST changes: -ALEN70TA6 PO; +ALEN70TA71 PO; +BUDE0.5A NEB; +BUPR200T2 PO; +BUSP15TA PO; +COLE1TAB2 PO; +DIPH1TAB PO; +IPRA3AMP29 NEB; +LOPE-101 PO; +MULT-650 PO; +ONDA4TAB12 PO; +PROC10TA57 PO
--- NOTE | 2020-10-27 16:09 | KCIC ---
MRI BRAIN WO+W Date: 10/27/2020 2:00 PM Indication: SMALL CELL LUNG CA. Follow up eval for metasatic disease. Comparison: 06/07/2020. Technique: Multiplanar multisequence MRI of the brain was performed with and without intravenous cont rast using the standard protocol. 14 cc Clariscan contrast was administered intravenously during the exam. Findings: No acute infarct. No acute or chronic hemorrhage. The ventricles are normal in size and configuration without hydrocephalus. Mild scattered FLAIR hyperintensities in the subcortical and periventricular deep white matter, a nonspecific finding, most commonly seen with chronic small vessel ischemic disea se. Postsurgical changes involving the left anterior temporal lobe and skull base. Enlargement of Meckel' s caves bilaterally, larger on the right with extension into the petrous apex, probably a cephalocele . The pituitary and sella are normal. No Chiari malformation. The visualized upper cervical spine is normal. The visualized orbits and globes are normal. Unchanged T1/T2 hyperintense lesion in the sphenoid sinu s on the left with extension into the clivus, likely a mucocele. The mastoid air cells are clear. Normal flow voids within the vertebral, basilar, and internal carotid arteries indicating patency. IMPRESSION: No evidence of intracranial metastatic disease. Electronically signed by: Jesus Lopez MD (10/27/2020 4:06 PM) [id number]
== END ==
LOC: KCIC MRI 13:44
PROVIDERS: ATTEND Internal Medicine Hematology
DX: C34.90 Malignant neoplasm of unspecified part of unspecified bronchus or lung (principal)
CPT/HCPCS: 70553; A9575

== ENCOUNTER → 2021-04-07 | Outpatient (CLI) | payer MEDICARE ==
[2020-07-21 17:30] VITALS: BP 115/54
[~2021-04-07] MED LIST changes: -GADOTERATE 7.5 MMOL/15ML VIAL. IVP ONE
--- NOTE | 2021-04-07 13:37 | CARD ---
MR#: [id number] Date of Study: 04/07/2021 Ordering Physician: JAMAAL WILKINS, Referring Physician: JAMAAL WILKINS, Tech: [place] [facility] APPROVED REPORT EXAM: Two-dimensional and M-mode echocardiogram with Doppler and color Doppler. Other Information Quality : AverageHR: 94bpm Rhythm : NSR INDICATION Cardiac Disease: CAD 2D DIMENSIONS RVDd2.9 (2.9-3.5cm)Left Atrium(2D)3.3 (1.6-4.0cm) IVSd1.1 (0.7-1.1cm)Aortic Root(2D)3.0 (2.0-3.7cm) LVDd4.0 (3.9-5.9cm)LVOT Diameter2.0 (1.8-2.4cm) PWd1.1 (0.7-1.1cm)LVDs3.1 (2.5-4.0cm) FS (%) 22.6 %SV31.7 ml Aortic Valve AoV Peak Jacob.133.8cm/sAoV VTI23.9cm AO Peak GR.7.2mmHgLVOT Peak Jacob.104.6cm/s LVOT VTI 18.63cmAO Mean GR.4mmHg KORI (VMAX)1.50rl6DYM (VTI)2.42cm2 Mitral Valve MV E Jgnhcbvt55.8cm/sMV DECEL [id number] MV A Yoauazvd86.3cm/sMV PEN44ho E/A Ratio0.6MVA (PHT)3.35cm2 TDI E/Lateral E'6.3E/Medial E'6.5 Pulmonary Valve PV Peak Bmglerwd398.0cm/sPV Peak Grad.6mmHg Tricuspid Valve TR P. Pmbmihfl748xt/sTR Peak Gr.24mmHg LEFT VENTRICLE The left ventricle is normal size. There is normal left ventricular wall thickness. The left ventricu lar systolic function is normal and the ejection fraction is within normal range. LV ejection fractio n is 55 to 60%. There is normal LV segmental wall motion. No left ventricle thrombus noted on this st udy. There is no ventricular septal defect visualized. There is no left ventricular aneurysm. There i s no mass noted in the left ventricle. RIGHT VENTRICLE The right ventricle is normal size. There is normal right ventricular wall thickness. The right ventr icular systolic function is normal. ATRIA The left atrium is mildly dilated. The right atrium size is normal. The interatrial septum is intact with no evidence for an atrial septal defect or patent foramen ovale as noted on 2-D or Doppler imagi ng. AORTIC VALVE The aortic valve is normal in structure and function. Doppler and Color Flow revealed no significant aortic regurgitation. There is no significant aortic valvular stenosis. There is no aortic valvular v egetation. MITRAL VALVE The mitral valve is normal in structure and function. There is no evidence of mitral valve prolapse. There is no mitral valve stenosis. Doppler and Color-flow revealed trace mitral regurgitation. TRICUSPID VALVE The tricuspid valve is normal in structure and function. Doppler and Color Flow revealed trace tricus pid regurgitation. There is no tricuspid valve prolapse or vegetation. There is no tricuspid valve st enosis. PULMONIC VALVE The pulmonary valve is normal in structure and function. Doppler and Color Flow revealed no pulmonic valvular regurgitation. There is no pulmonic valvular stenosis. GREAT VESSELS The aortic root is normal in size. The ascending aorta is normal in size. The pulmonary artery is nor mal. The IVC is normal in size and collapses >50% with inspiration. PERICARDIAL EFFUSION There is no pleural effusion. There is no evidence of significant pericardial effusion. Critical Notification Critical Value: No <Conclusion> The left ventricle is normal size. The left ventricular systolic function is normal and the ejection fraction is within normal range. LV ejection fraction is 55 to 60%. Doppler and Color Flow revealed no significant aortic regurgitation. There is no significant aortic valvular stenosis. Doppler and Color-flow revealed trace mitral regurgitation. Doppler and Color Flow revealed trace tricuspid regurgitation. Signed by : Juan Bermudez MD Electronically Approved : 04/07/2021 13:36:23
== END ==
LOC: CARD 12:55
PROVIDERS: ATTEND Internal Medicine Cardiovascular Disease
DX: I25.10 Atherosclerotic heart disease of native coronary artery without angina pectoris (principal); I51.7 Cardiomegaly
CPT/HCPCS: 93306

== ENCOUNTER → 2021-06-27 18:14 | Emergency (ER) | payer MEDICARE ==
[2020-07-21 17:30] VITALS: BP 115/54
== END | disposition left against medical advice (07) ==
LOC: ER 18:14
DX: Z04.3 Encounter for examination and observation following other accident (principal); Z53.21 Procedure and treatment not carried out due to patient leaving prior to being seen by health care provider; W18.39XA Other fall on same level, initial encounter; Y93.89 Activity, other specified; Y92.89 Other specified places as the place of occurrence of the external cause; Y99.8 Other external cause status

== ENCOUNTER → 2021-07-31 | Outpatient (CLI) | payer MEDICARE ==
[2020-07-21 17:30] VITALS: BP 115/54
[~2021-07-31] MED LIST changes: +GADOTERATE 7.5 MMOL/15ML VIAL. IVP ONE
--- NOTE | 2021-07-31 16:00 | KCIC ---
EXAM: Brain MRI without contrast. HISTORY: Intractable headache. Lung cancer. TECHNIQUE: Multiplanar, multisequence magnetic resonance imaging of the brain was performed without i ntravenous contrast. The patient was unable to tolerate postcontrast imaging. COMPARISON: 10/27/2020. FINDINGS: The exam is limited due to patient discomfort and incomplete imaging. The entire brain MRI protocol could not be performed. Postcontrast imaging was not performed. There are multiple heterogeneous T2 hyperintense lesions with surrounding edema within the bilateral cerebral hemispheres and right cerebellum, the appearance of which is consistent with metastatic dise ase. The largest lesion is seen within the right cerebellum measuring 1.9 cm. The additional lesions are seen involving the right parietal lobe and left parieto-occipital junction. There is encephalomalacia within the left temporal lobe. There is no midline shift. There is no hydro cephalus. There are few scattered nonspecific foci of signal change within the cerebral white matter. There is no convincing acute hemorrhage. There is evidence of lens surgery. There is near complete opacification of the sphenoid sinus and pos terior left ethmoid sinus due to suspected mucous retention cysts. There is a tiny right maxillary si nus air-fluid level superimposed on maxillary sinus and bilateral ethmoid sinus mucosal thickening. T here is evidence of prior left maxillary antrostomy/uncinectomy surgery. The mastoid air cells are cl ear. There are normal flow voids within the cerebral vessels. There is no convincing calvarial lesion . IMPRESSION: 1. Limited exam due to motion and inability the patient to tolerate the entire brain MRI protocol or postcontrast imaging. 2. Multiple lesions within the cerebral hemispheres and right cerebellum, the appearance of which fav ors intracranial metastatic disease. The largest lesion is seen within the right cerebellum 1.9 cm an d the majority of these lesions are associated with surrounding edema. These can be better assessed w ith postcontrast imaging. 3. Few scattered foci of signal change within the cerebral white matter, likely due to chronic small vessel disease. 4. Paranasal sinus disease. 5. Encephalomalacia within the left temporal lobe. Electronically signed by: Viry Woodson MD (07/31/2021 3:58 PM) [id number]
== END ==
LOC: KCIC MRI 14:30
PROVIDERS: ATTEND Internal Medicine Hematology
DX: G93.89 Other specified disorders of brain (principal); R90.82 White matter disease, unspecified; J34.89 Other specified disorders of nose and nasal sinuses; R51.9 Headache, unspecified; G89.29 Other chronic pain; C34.90 Malignant neoplasm of unspecified part of unspecified bronchus or lung; Z98.890 Other specified postprocedural states
CPT/HCPCS: 70551

== ENCOUNTER → 2021-10-16 | Outpatient (CLI) | payer MEDICARE ==
[2020-07-21 17:30] VITALS: BP 115/54
[~2021-10-16] MED LIST changes: -GADOTERATE 7.5 MMOL/15ML VIAL. IVP ONE
--- NOTE | 2021-10-16 16:49 | RAD ---
EXAM: Carotid Doppler sonogram. HISTORY: Transient ischemic attack. Left carotid stenosis. TECHNIQUE: Mckeon scale and color Doppler sonographic evaluation of the neck with spectral waveform chava lysis was performed and static images are submitted for review. FINDINGS: There is mild atherosclerotic plaque involving the right carotid bulb and proximal internal and external carotid arteries. The peak systolic velocity within the right common carotid artery is 115 cm/sec. The peak systolic velocity within the right internal carotid artery is 78 cm/sec and the end diastolic velocity within the right internal carotid artery is 14 cm/sec. The right ICA/CCA ratio is 0.82. There is moderate to severe atherosclerotic plaque in the left carotid bulb and proximal left interna l and external carotid arteries. The peak systolic velocity within the left common carotid artery is 111 cm/sec. The peak systolic velocity within the left internal carotid artery is 197 cm/sec and the end diastolic velocity within the left internal carotid artery is 39 cm/sec. The left ICA/CCA ratio i s 2.4. There is normal antegrade flow within both vertebral arteries. IMPRESSION: Doppler findings consistent with 50-69 percent stenosis involving the left ICA and less t corcoran 50 percent stenosis involving the right ICA. PQRS Compliance Statement - Stenosis calculations for CT, MR and conventional angiography are based u billy measurement of the distal ICA diameter in accordance with the NASCET methodology. Stenosis calcu lations for carotid ultrasound studies are derived from validated velocity criteria which are known t o correlate with the NASCET methodology. Electronically signed by: Viry Woodson MD (10/16/2021 4:47 PM) [id number]
== END ==
LOC: US 13:36
PROVIDERS: ATTEND Internal Medicine Cardiovascular Disease
DX: I65.23 Occlusion and stenosis of bilateral carotid arteries (principal); I73.9 Peripheral vascular disease, unspecified
CPT/HCPCS: 93880